=== PATIENT | female | born 1990 ===

== ENCOUNTER 2020-11-25 22:07 | Emergency (ER) | payer MEDICAID, SELFPAY ==
--- NOTE | ~2020-11-25 | XR_ITS ---
EXAMINATION: XR CHEST CLINICAL INFORMATION: Chest wall pain COMPARISON: 12/22/2018 TECHNIQUE: Frontal view of the chest was obtained. FINDINGS: No significant abnormality is noted involving the heart, lungs, mediastinum, bony thorax or soft tissues. XR/XR chest 1V IMPRESSION: Unremarkable examination.
--- NOTE | 2020-11-25 22:13 | ECG_ITS ---
Test Reason : CHEST WALL PAIN Blood Pressure : / mmHG Vent. Rate : 082 BPM Atrial Rate : 082 BPM P-R Int : 170 ms QRS Dur : 078 ms QT Int : 378 ms P-R-T Axes : 046 069 047 degrees QTc Int : 441 ms Normal sinus rhythm Normal ECG When compared with ECG of 22-DEC-2018 21:34, No significant change was found Referred By: Generic ED Physician Electronically Signed By:QUENTIN MONTEIRO
[2020-11-25 22:14] VITALS: BP 112/55; PULSE 82; RESP 17; TEMP 37.1; O2SAT 98; BMI 45.3
[2020-11-25 22:20] VITALS: BP 124/65; PULSE 82; O2SAT 100
--- NOTE | 2020-11-25 22:36 | ED.CHESTPAIN ---
HPI - Chest Pain General Chief Complaint: Chest Pain Stated Complaint: Chest wall pain Time Seen by Provider: 11/25/20 22:29 Related Data Previous Rx's Medication Instructions Recorded ibuprofen 600 mg tablet 600 mg PO Q8H PRN #10 tab 11/25/20 Allergies Allergy/AdvReac Type Severity Reaction Status Date / Time penicillin V Allergy Unknown Unknown Verified 11/25/20 22:14 Penicillins [PENICILLINS] Allergy Unknown UNKNOWN Verified 11/25/20 22:14 [facility] Past Medical History Medical History (Updated 11/25/20 @ 23:57 by Bella Mehta MD) No known health problems Social History Social History Advance Directives: No Advance Directives Information Provided: Yes Physical Exam Vital Signs: Vital Signs: Last Vital Signs Temp 98.8 F 11/25/20 22:14 Pulse 82 11/25/20 22:14 Resp 17 11/25/20 22:14 BP 112/55 L 11/25/20 22:14 Pulse Ox 98 11/25/20 22:14 Body Mass Index 45.3 Course Course Course Narrative: I discussed the labs and imaging with the patient, EKG, troponin and D-dimer were within normal limits. Patient likely having pleurisy. MDM - Chest Pain Lab Data Result diagrams: 11/25/20 23:06 11/25/20 23:06 Labs: Lab Results 11/25/20 11/25/20 11/25/20 Range/Units 23:05 23:05 23:06 WBC 13.7 H (4.8-10.8) X10*3/uL RBC 4.34 (4.20-5.50) X10*6/uL Hgb 12.5 (12.0-16.0) g/dl Hct 37.4 (37-47) % MCV 86.2 (80-98) fL MCH 28.8 (27.0-33.0) pg MCHC 33.4 (31.0-35.0) g/dl RDW 13.0 (11.0-16.0) % Plt Count 407 H (160-400) X10*3/uL MPV 9.2 L (9.4-12.3) fL Immature Gran % (Auto) 0.4 (0.0-0.4) % Neut % (Auto) 59.9 (45-73) % Lymph % (Auto) 31.1 (20-40) % [place] % (Auto) 7.4 (2-11) % Eos % (Auto) 0.8 (0-4) % Baso % (Auto) 0.4 (0-2) % Lymph # (Auto) 4.3 (1.2-4.9) X10*3/uL [place] # (Auto) 1.0 (0.1-1.2) X10*3/uL Eos # (Auto) 0.1 (0.0-0.4) X10*3/uL Baso # (Auto) 0.1 (0.0-0.2) X10*3/uL Abs Immat Gran (auto) 0.05 H (0.00-0.03) X10*3/uL Absolute Neuts (auto) 8.2 (2.0-8.3) X10*3/uL Absolute Nucleated RBC 0.000 (0.0-0.012) X10*3/uL Nucleated RBC % (auto) 0.0 (0.0-0.2) /100WBC D-Dimer < 200 NG/ML Sodium (135-145) mmol/L Potassium (3.3-5.1) mmol/L Chloride (96-108) mmol/L Carbon Dioxide (22-29) mmol/L Anion Gap (12-20) BUN (9-16) mg/dL Creatinine (0.5-1.4) mg/dL Estim Creat Clear Calc Estimated GFR Random Glucose (60-115) mg/dL Calcium (8.4-10.2) mg/dL Total Bilirubin (0.0-1.0) mg/dL Direct Bilirubin (0.0-0.5) mg/dL AST (5-31) U/L ALT (0-31) U/L Alkaline Phosphatase (39-117) U/L Troponin I High Sens < 3.5 (<3.5-17.0) ng/L Total Protein (6.5-8.0) g/dL Albumin (3.5-5.0) g/dL Beta HCG, Quant mIU/mL 11/25/20 Range/Units 23:06 WBC (4.8-10.8) X10*3/uL RBC (4.20-5.50) X10*6/uL Hgb (12.0-16.0) g/dl Hct (37-47) % MCV (80-98) fL MCH (27.0-33.0) pg MCHC (31.0-35.0) g/dl RDW (11.0-16.0) % Plt Count (160-400) X10*3/uL MPV (9.4-12.3) fL Immature Gran % (Auto) (0.0-0.4) % Neut % (Auto) (45-73) % Lymph % (Auto) (20-40) % [place] % (Auto) (2-11) % Eos % (Auto) (0-4) % Baso % (Auto) (0-2) % Lymph # (Auto) (1.2-4.9) X10*3/uL [place] # (Auto) (0.1-1.2) X10*3/uL Eos # (Auto) (0.0-0.4) X10*3/uL Baso # (Auto) (0.0-0.2) X10*3/uL Abs Immat Gran (auto) (0.00-0.03) X10*3/uL Absolute Neuts (auto) (2.0-8.3) X10*3/uL Absolute Nucleated RBC (0.0-0.012) X10*3/uL Nucleated RBC % (auto) (0.0-0.2) /100WBC D-Dimer NG/ML Sodium 138 (135-145) mmol/L Potassium 4.2 (3.3-5.1) mmol/L Chloride 106 (96-108) mmol/L Carbon Dioxide 23 (22-29) mmol/L Anion Gap 13 (12-20) BUN 17 H (9-16) mg/dL Creatinine 0.79 (0.5-1.4) mg/dL Estim Creat Clear Calc 119.8 Estimated GFR > 60 Random Glucose 91 (60-115) mg/dL Calcium 9.3 (8.4-10.2) mg/dL Total Bilirubin 0.2 (0.0-1.0) mg/dL Direct Bilirubin < 0.2 (0.0-0.5) mg/dL AST 14 (5-31) U/L ALT 20 (0-31) U/L Alkaline Phosphatase 102 (39-117) U/L Troponin I High Sens (<3.5-17.0) ng/L Total Protein 7.4 (6.5-8.0) g/dL Albumin 3.9 (3.5-5.0) g/dL Beta HCG, Quant < 2 mIU/mL Imaging Data Chest x-ray: Radiologist's impression: FINDINGS: No significant abnormality is noted involving the heart, lungs, mediastinum, bony thorax or soft tissues. XR/XR chest 1V IMPRESSION: Unremarkable examination. ? ECG Data ECG #1: Attestation: I personally reviewed and interpreted this ECG as follows: (Sinus rhythm, heart rate 82, no ST segment depression or elevation, finger jacinto, QTC 441) Discharge Plan Discharge Clinical Impression: Pleurisy Patient Disposition: Home, Self-Care Instructions: Pleurisy (ED) Additional Instructions: Please follow-up with your primary care physician tomorrow. If you have any worsening or new symptoms, please return to the emergency room or call 911 Prescriptions: New ibuprofen 600 mg tablet 600 mg PO Q8H PRN (Reason: pain) Qty: 10 RF: 0
--- NOTE | 2020-11-25 23:03 | PC.NURSE ---
IN ROOM FOR EVAL. PT C/O LEFT SIDED CP, WHICH IS WORSE WHEN SHE BREATHS IN. PT ALERT, RESPIRATIONS EASY, N/L. SKIN W/D. WILL CONTINUE TO MONITOR PT.
[2020-11-25 23:14] LABS: Basophils Absolute Auto 0.1 X10*3/uL (0.0-0.2); Basophils Percent Auto 0.4 % (0-2); Eosinophils Absolute Auto 0.1 X10*3/uL (0.0-0.4); Eosinophils Percent Auto 0.8 % (0-4); Hematocrit 37.4 % (37-47); Hemoglobin 12.5 g/dl (12.0-16.0); Imm Gran Abs Auto 0.05 X10*3/uL (0.00-0.03); Imm Gran Pct Auto 0.4 % (0.0-0.4); Lymphocytes Absolute Auto 4.3 X10*3/uL (1.2-4.9); Lymphocytes Percent Auto 31.1 % (20-40); MANUAL DIFF FLAG NO; Mean Corpuscular HGB Conc 33.4 g/dl (31.0-35.0); Mean Corpuscular Hemoglobin 28.8 pg (27.0-33.0); Mean Corpuscular Volume 86.2 fL (80-98); Mean Platelet Volume 9.2 fL (9.4-12.3); Monocytes Percent Auto 7.4 % (2-11); Neutrophils Absolute Auto 8.2 X10*3/uL (2.0-8.3); Neutrophils Percent Auto 59.9 % (45-73); Platelet Count 407 X10*3/uL (160-400); Red Blood Count 4.34 X10*6/uL (4.20-5.50); White Blood Count 13.7 X10*3/uL (4.8-10.8)
[2020-11-25 23:39] LABS: D Dimer < 200 NG/ML
[2020-11-25 23:39] LABS: Alanine Aminotransferase 20 U/L (0-31); Albumin Level 3.9 g/dL (3.5-5.0); Alkaline Phosphatase 102 U/L (39-117); Anion Gap 13 (12-20); Aspartate Amino Transferase 14 U/L (5-31); Bilirubin Direct < 0.2 mg/dL (0.0-0.5); Bilirubin Total 0.2 mg/dL (0.0-1.0); Blood Urea Nitrogen 17 mg/dL (9-16); Calcium 9.3 mg/dL (8.4-10.2); Carbon Dioxide 23 mmol/L (22-29); Chloride 106 mmol/L (96-108); Creatinine Clr Calc Pharmacy 119.8; Estimated Glomerular Filt Rate > 60; Glucose Random 91 mg/dL (60-115); Potassium 4.2 mmol/L (3.3-5.1); Sodium 138 mmol/L (135-145); Total Protein 7.4 g/dL (6.5-8.0)
[2020-11-25 23:42] LABS: Troponin-I High Sensitivity < 3.5 ng/L (<3.5-17.0)
[2020-11-25 23:45] LABS: HCG Quantitative < 2 mIU/mL
[2020-11-26] VITALS: BP 100/36; PULSE 89; RESP 16; TEMP 37.2; O2SAT 100
== END 2020-11-26 00:13 | disposition home or self-care (01) ==
PROVIDERS: Emergency Provider Emergency Medicine
DX: R09.1 Pleurisy (principal); R07.89 Other chest pain
CPT/HCPCS: 36415; 71045; 80048; 80076; 84484; 84702; 85025; 85379; 93005; 99284

== ENCOUNTER 2020-12-28 13:45 | Emergency (ER) | payer MEDICAID, SELFPAY ==
[2020-12-28 14:04] VITALS: BP 115/78; PULSE 99; RESP 19; TEMP 36.8; O2SAT 100; BMI 45.3
[2020-12-28 14:30] LABS: Glucose Urine UA NEG (NEG); Leukocyte Esterase Urine NEG (NEG); Nitrite Urine NEG (NEG); Specific Gravity - Urine >= 1.030 (1.005-1.025); UACC Culture Trigger NO; Urine Blood 1+ (NEG); Urine Ketones 15 MG/DL (NEG); Urine Protein TRACE MG/DL (NEG-TRACE)
[2020-12-28 14:33] LABS: Appearance Urine CLEAR; Color Urine YELLOW
[2020-12-28 14:45] LABS: Bacteria Urine TRACE /LPF; Mucus Urine 2+ /LPF; Squamous Epithelial Cell Urine 1+ /LPF
--- NOTE | 2020-12-28 15:35 | ED.ABDPAIN ---
HPI - Abdominal Pain General Chief Complaint: Abdominal Pain Stated Complaint: abd pain Time Seen by Provider: 12/28/20 15:35 Source: patient Mode of arrival: ambulatory Limitations: no limitations History of Present Illness HPI narrative: 30 years old female is here today for complaining of epigastric burning and discomfort for the last few days. Patient denies this being associated to any food or drink. Patient denies any nausea or vomiting. Patient reports having history of gallstones in the past. Since she learned that she states that she has been eating low-fat diet. Patient reports that she had a last bowel movement this morning and was normal. Patient reports that she feels like she empty her bowels completely. Denies any diarrhea or any additional GI symptoms. Patient denies SOB, CP, [employer], presyncope or syncope. Patient reports that she took Tums at home without any results. Patient reports that she also took Aleve p.m. at night so she can rest better however she reports that the and was more intense at night. Patient denies late night snacking. MD elicited complaint: other (Epigastric) Pertinent past history: none Pain Consistency: constant Location: epigastric Severity: mild Quality: burning Radiation: epigastric Migration to: no migration Related Data Previous Rx's Medication Instructions Recorded ibuprofen 600 mg tablet 600 mg PO Q8H PRN #10 tab 11/25/20 famotidine 20 mg tablet 20 mg PO BEDTIME #20 tab 12/28/20 pantoprazole 40 mg tablet,delayed 40 mg PO DAILY #20 tab 12/28/20 release Allergies Allergy/AdvReac Type Severity Reaction Status Date / Time penicillin V Allergy Unknown Unknown Verified 12/28/20 14:04 Penicillins [PENICILLINS] Allergy Unknown UNKNOWN Verified 12/28/20 14:04 Review of Systems Review of Systems Constitutional : No Weight loss, No Fever, No Chills, No Night Sweats, No Fatigue, No Malaise ENT/Mouth : No Hearing loss, No Ear Pain, No Nasal Congestion, No Sinus Pain, No Hoarseness, No sore throat, No Rhinorrhea, No Swallowing Difficulty Eyes: No Eye Pain, No Swelling, No Redness, No Foreign Body, No Discharge, No Vision Changes Cardiovascular : No Chest Pain, No SOB, No Dyspnea on Exertion, No Orthopnea, No Edema, No Palpitations Respiratory : No Cough, No Sputum, No Wheezing, No Smoke Exposure, No Dyspnea Gastrointestinal : No Nausea, No Vomiting, No Diarrhea, No Constipation, abdominal Pain, epigastric pain No Hematochezia, No Melena Genitourinary : no irregular bleeding, No Dysuria, No Urinary Frequency, No Hematuria, No Urinary Incontinence, No Urgency, No Flank Pain, No Urinary Flow Changes, No Hesitancy Musculoskeletal : No joint pain, No Myalgias, No Joint Swelling Skin : No Skin Lesions, No rash Neuro : No Weakness, No Numbness, No Paresthesias, No Loss of Consciousness, No Dizziness, No Headache Psych : No Anxiety/Panic, No Depression, No SI/HI/AH/VH, No Social Issues, Heme/Lymph: No Bruising, No Bleeding,No Lymphadenopathy Endocrine : No Polyuria, No Polydipsia, No Temperature Intolerance Yes all other systems are reviewed and are negative Physical Exam Vital Signs: Vital Signs: Last Vital Signs Temp 98.2 F 12/28/20 14:04 Pulse 92 12/28/20 18:09 Resp 16 12/28/20 18:09 BP 124/69 12/28/20 18:09 Pulse Ox 100 12/28/20 18:09 Body Mass Index 45.3 Const: General: healthy appearing, no acute distress and well developed Nutritional Appearance: well nourished Orientation/consciousness: patient oriented x3 HENMT: Head: Yes normal to inspection Ears: hearing grossly normal bilaterally General nose exam: Normal external nose present Face and sinus: Yes normal facial exam Mouth: Normal oral and palatal mucosa present Eyes: General: appearance normal, both eyes and all related structures Pupils: Equal, round and reactive pupils present Neck: Neck: Yes normal visual inspection, Yes full ROM and Yes trachea midline Thyroid: Thyroid normal Resp: Auscultation: clear to auscultation bilaterally Cardio: Rate: regular rate Rhythm: regular rhythm GI: Inspection: Yes normal to inspection, No distended and Yes obesity Palpation (GI): Soft to palpation, Firmness to palpation present (GI), Tenderness to palpation present (GI) (Mid upper abdomen) and No hepatosplenomegaly present Auscultation: normal bowel sounds Skin: General skin exam: elasticity normal, turgor normal and dry skin Neuro: General: patient oriented x3 Cranial nerves: Yes Equal, round and reactive pupils present Course Course Course Narrative: 30-year-old female is here today for complaining of epigastric burning, pain. Patient reports that she had this pain for the last few days. Patient states that does not matter of what kind of food she eats. Patient reports that her pain was worse during the night when she was laying down. Patient reports that she Aleve p.m. without any effect. Discussed with her that this is nonsteroidal anti-inflammatory and might not been a good choice as this can aggravate her stomach. Patient reports that she has no nausea, vomiting, diarrhea or constipation. Patient denies any other GI discomfort no right upper quadrant tenderness mild mid upper abdominal area tenderness. I will give her Protonix. Most likely acid reflux. Patient denies any chest pain no radiation of the pain. Will rule out pancreatitis, cholecystitis. Patient does have a history of gallstones. Negative Meyer's sign. Labs: CBC, CMP, lipase Reevaluation(s) Reevaluation #1: Labs reviewed, normal liver and kidney functions. Most likely viral symptoms. Will send patient home on pantoprazole and famotidine. Patient can follow-up with her primary care provider. Patient is agreeable to this plan and verbalizes understanding of instructions she was given the opportunity to ask questions and all questions answered MDM - Abdominal Pain Lab Data Result diagrams: 12/28/20 16:15 12/28/20 16:15 Labs: Lab Results 12/28/20 12/28/20 12/28/20 Range/Units 14:23 16:15 16:15 WBC 11.7 H (4.8-10.8) X10*3/uL RBC 5.07 (4.20-5.50) X10*6/uL Hgb 14.5 (12.0-16.0) g/dl Hct 43.8 (37-47) % MCV 86.4 (80-98) fL MCH 28.6 (27.0-33.0) pg MCHC 33.1 (31.0-35.0) g/dl RDW 13.1 (11.0-16.0) % Plt Count 393 (160-400) X10*3/uL MPV 9.2 L (9.4-12.3) fL Immature Gran % (Auto) 0.3 (0.0-0.4) % Neut % (Auto) 64.1 (45-73) % Lymph % (Auto) 25.9 (20-40) % [place] % (Auto) 7.9 (2-11) % Eos % (Auto) 1.5 (0-4) % Baso % (Auto) 0.3 (0-2) % Lymph # (Auto) 3.0 (1.2-4.9) X10*3/uL [place] # (Auto) 0.9 (0.1-1.2) X10*3/uL Eos # (Auto) 0.2 (0.0-0.4) X10*3/uL Baso # (Auto) 0.0 (0.0-0.2) X10*3/uL Abs Immat Gran (auto) 0.04 H (0.00-0.03) X10*3/uL Absolute Neuts (auto) 7.5 (2.0-8.3) X10*3/uL Absolute Nucleated RBC 0.000 (0.0-0.012) X10*3/uL Nucleated RBC % (auto) 0.0 (0.0-0.2) /100WBC Sodium 138 (135-145) mmol/L Potassium 4.0 (3.3-5.1) mmol/L Chloride 104 (96-108) mmol/L Carbon Dioxide 26 (22-29) mmol/L Anion Gap 12 (12-20) BUN 13 (9-16) mg/dL Creatinine 0.61 (0.5-1.4) mg/dL Estim Creat Clear Calc 153.7 Estimated GFR > 60 Random Glucose 76 (60-115) mg/dL Calcium 10.0 D (8.4-10.2) mg/dL Total Bilirubin 0.4 (0.0-1.0) mg/dL AST 17 (5-31) U/L ALT 29 (0-31) U/L Alkaline Phosphatase 93 (39-117) U/L Total Protein 8.4 H (6.5-8.0) g/dL Albumin 4.4 (3.5-5.0) g/dL Lipase 29 (8-78) U/L Urine Color YELLOW Urine Appearance CLEAR Urine pH 6.0 (5.0-8.0) Ur Specific [place] >= 1.030 H (1.005-1.025) Urine Protein TRACE (NEG-TRACE) MG/DL Urine Glucose (UA) NEG (NEG) MG/DL Urine Ketones 15 (NEG) MG/DL Urine Blood 1+ H (NEG) Urine Nitrite NEG (NEG) Ur Leukocyte Esterase NEG (NEG) Urine RBC 15-29 H (0) /HPF Urine WBC 1-4 (0-4) /HPF Ur Squamous Epith Cells 1+ /LPF Urine Bacteria TRACE /LPF Urine Mucus 2+ /LPF Discharge Plan Discharge Clinical Impression: Epigastric abdominal pain Patient Disposition: Home, Self-Care Instructions: Epigastric Pain (ED) Additional Instructions: You were seen here today for mid upper abdominal discomfort and burning. You were giving fluids and medication that relieved these symptoms. Your labs shows no anemia, your liver and kidney functions were normal. Please follow-up with your primary care provider and GI specialist for further evaluation. I will be sending you home with medications to help you with the symptoms. You may return to emergency department if you will have worsening symptoms or experience additional coarsening symptoms. Prescriptions: New pantoprazole 40 mg tablet,delayed release (DR/EC) 40 mg PO DAILY Qty: 20 RF: 0 famotidine 20 mg tablet 20 mg PO BEDTIME Qty: 20 RF: 0 No Action ibuprofen 600 mg tablet 600 mg PO Q8H PRN (Reason: pain) Qty: 10 RF: 0 Referrals: Annabel Davis MD [Physician] - 2 days Interventions: ED Discharge Assessment Last Done: 12/28/20 18:43 Discharge Date/Time: 12/28/20 18:43 [facility] Past Medical History Medical History (Updated 12/29/20 @ 00:02 by Background Daandre) No known health problems Social History Social History Patient Tobacco Use Status: Never used Tobacco Use of substances other than those prescribed or required for medical reasons: No Advance Directives: No Advance Directives Information Provided: Yes Patient : No
[2020-12-28 16:19] LABS: Basophils Percent Auto 0.3 % (0-2); Eosinophils Absolute Auto 0.2 X10*3/uL (0.0-0.4); Eosinophils Percent Auto 1.5 % (0-4); Hematocrit 43.8 % (37-47); Hemoglobin 14.5 g/dl (12.0-16.0); Imm Gran Abs Auto 0.04 X10*3/uL (0.00-0.03); Imm Gran Pct Auto 0.3 % (0.0-0.4); Lymphocytes Percent Auto 25.9 % (20-40); MANUAL DIFF FLAG NO; Mean Corpuscular HGB Conc 33.1 g/dl (31.0-35.0); Mean Corpuscular Hemoglobin 28.6 pg (27.0-33.0); Mean Corpuscular Volume 86.4 fL (80-98); Mean Platelet Volume 9.2 fL (9.4-12.3); Monocytes Absolute Auto 0.9 X10*3/uL (0.1-1.2); Monocytes Percent Auto 7.9 % (2-11); Neutrophils Absolute Auto 7.5 X10*3/uL (2.0-8.3); Neutrophils Percent Auto 64.1 % (45-73); Platelet Count 393 X10*3/uL (160-400); Red Blood Count 5.07 X10*6/uL (4.20-5.50); Red Cell Distribution Width 13.1 % (11.0-16.0); White Blood Count 11.7 X10*3/uL (4.8-10.8)
[2020-12-28] MEDS: 0.9 % Sodium Chloride 1,000 ML 999 ML IV (16:33)
[2020-12-28] MEDS: Pantoprazole Sodium 40 MG/10 ML VIAL IVPUSH (16:33)
[2020-12-28 16:47] LABS: Alanine Aminotransferase 29 U/L (0-31); Albumin Level 4.4 g/dL (3.5-5.0); Alkaline Phosphatase 93 U/L (39-117); Anion Gap 12 (12-20); Aspartate Amino Transferase 17 U/L (5-31); Bilirubin Total 0.4 mg/dL (0.0-1.0); Blood Urea Nitrogen 13 mg/dL (9-16); Carbon Dioxide 26 mmol/L (22-29); Chloride 104 mmol/L (96-108); Creatinine Clr Calc Pharmacy 153.7; Estimated Glomerular Filt Rate > 60; Glucose Random 76 mg/dL (60-115); Lipase 29 U/L (8-78); Sodium 138 mmol/L (135-145); Total Protein 8.4 g/dL (6.5-8.0)
[2020-12-28 18:09] VITALS: BP 124/69; PULSE 92; RESP 16; O2SAT 100
== END 2020-12-28 18:43 | disposition home or self-care (01) ==
PROVIDERS: Nurse Practitioner Family; Emergency Provider Emergency Medicine
DX: R10.13 Epigastric pain (principal); Z79.899 Other long term (current) drug therapy
CPT/HCPCS: 36415; 80053; 81001; 83690; 85025; 96361; 96374; 99284

== ENCOUNTER 2021-09-19 09:03 | Emergency (ER) | payer MEDICAID, SELFPAY ==
--- NOTE | ~2021-09-19 | XR_ITS ---
EXAMINATION: XR CHEST CLINICAL INFORMATION: Shortness of breath COMPARISON: 11/25/2020 TECHNIQUE: Frontal view of the chest was obtained. FINDINGS: There is no acute finding. No failure or infiltrate. There is no effusion. The cardiac silhouette is within normal limits. The hilar regions are comparable. XR/XR chest 1V IMPRESSION: No acute finding
[2021-09-19 09:17] VITALS: BP 115/74; PULSE 86; RESP 18; TEMP 35.7; O2SAT 98; BMI 44.4
[2021-09-19 10:03] LABS: COVID-19 Test Negative (Negative)
[2021-09-19 10:22] LABS: IDNOW Serial# 08D9AD1C
[2021-09-19 10:23] LABS: Strep A Nucleic Acid Positive (Negative)
[2021-09-19 10:35] LABS: Influenza A Negative (Negative); Influenza B2 Negative (Negative)
--- NOTE | 2021-09-19 10:59 | ED_ITS ---
HPI - URI/Sore Throat General Chief Complaint: Upper Respiratory Symptoms Stated Complaint: diff breathing Time Seen by Provider: 09/19/21 10:59 Source: patient Mode of arrival: ambulatory Limitations: no limitations History of Present Illness MD elicited complaint: cough, sore throat, rhinorrhea and nasal congestion Onset (ago): day(s) (3) Consistency: constant Severity: mild Able to tolerate fluids by mouth: Yes Exacerbating factors: swallowing Relieving factors: nothing Context: sick contacts (ER daughter with similar symptoms) Associated symptoms: chills, myalgias, headache, rhinorrhea, nasal congestion, sore throat and cough Treatments prior to arrival: none Related Data Previous Rx's Medication Instructions Recorded ibuprofen 600 mg tablet 600 mg PO Q8H PRN #10 tab 11/25/20 famotidine 20 mg tablet 20 mg PO BEDTIME #20 tab 12/28/20 pantoprazole 40 mg tablet,delayed 40 mg PO DAILY #20 tab 12/28/20 release albuterol sulfate 90 mcg/actuation 1 inh INHALATION QID PRN #8.5 g 09/19/21 aerosol inhaler clindamycin HCl 300 mg capsule 300 mg PO TID 10 Days #30 cap 09/19/21 prednisone 20 mg tablet 40 mg PO DAILY 5 Days #10 tab 09/19/21 Allergies Allergy/AdvReac Type Severity Reaction Status Date / Time penicillin V Allergy Unknown Unknown Verified 12/28/20 14:04 Penicillins [PENICILLINS] Allergy Unknown UNKNOWN Verified 12/28/20 14:04 Review of Systems Review of Systems: Constitutional : + chills/fatigue/malaise, No Weight loss, No Fever, No Night Sweats ENT/Mouth : + sore throat/nasal congestion/rhinorrhea/right ear pain, No Hearing loss, No Sinus Pain, No Hoarseness, No Swallowing Difficulty Eyes: No Eye Pain, No Swelling, No Redness, No Foreign Body, No Discharge, No Vision Changes Cardiovascular : No Chest Pain, No SOB, No Dyspnea on Exertion, No Orthopnea, No Edema, No Palpitations Respiratory : + Cough, No Sputum, No Wheezing, No Smoke Exposure, No Dyspnea Gastrointestinal : No Nausea, No Vomiting, No Diarrhea, No Constipation, No abdominal Pain, No Hematochezia, No Melena Genitourinary : no irregular bleeding, No Dysuria, No Urinary Frequency, No Hematuria, No Urinary Incontinence, No Urgency, No Flank Pain, No Urinary Flow Changes, No Hesitancy Musculoskeletal : No joint pain, + Myalgias, No Joint Swelling Skin : No Skin Lesions, No rash Neuro : No Weakness, No Numbness, No Paresthesias, No Loss of Consciousness, No Dizziness, No Headache Psych : No Anxiety/Panic, No Depression, No SI/HI/AH/VH, No Social Issues, Heme/Lymph: No Bruising, No Bleeding,No Lymphadenopathy Endocrine : No Polyuria, No Polydipsia, No Temperature Intolerance Yes all other systems are reviewed and are negative [facility] Past Medical History Attestation statement: The following information was validated with the patient. Medical History No known health problems Social History Social History Patient Tobacco Use Status: Never used Tobacco Advance Directives: No Advance Directives Information Provided: No Physical Exam Vital Signs: Vital Signs: Last Vital Signs Temp 96.2 F L 09/19/21 09:17 Pulse 86 09/19/21 09:17 Resp 18 09/19/21 09:17 BP 115/74 09/19/21 09:17 Pulse Ox 98 09/19/21 09:17 BMI result Body Mass Index 44.4 vital signs have been reviewed as normal and appeared to be correct. Blood pressure normal. Heart rate normal. Respiration rate normal. Temperature normal. Oxygen saturation normal. Appearance: Alert. Oriented X3. No acute distress. Head: Normal external exam. Normocephalic. Atraumatic. No Epperson signs noted. No raccoon eyes noted Eyes: PERRLA. EOMI. Conjunctiva and sclera normal. Eyelids normal. ENT: EAC normal. TM's Normal. Posterior pharynx mildly erythematous with exudate noted. Uvula midline. Moist mucous membranes. No lesions/ulcerations or masses noted on the tongue. Normal voice. No trismus noted. No drooling noted. No muffled voice noted. Neck: Normal inspection. Neck supple. FROM. No adenopathy. Thyroid Normal. No tracheal deviation noted. No crepitus is noted. No meningeal signs. No neck mass noted. No signs of trauma noted. CVS: Normal heart rate and rhythm. Heart sound normal. Pulses normal throughout. No murmurs/rales/gallops. Respiratory: No respiratory distress. Painless inspiration. Breath sounds normal. No wheezes/rales/rhonchi noted. Chest nontender. No crepitus is noted. No signs of trauma noted. No accessory muscle usage noted or decreased air movement noted. No signs of trauma. Abdomen: Soft and nontender. Bowel sounds normal in all 4 quadrants. No distention noted. No organomegaly noted. No visible injury noted. Back: No CVA tenderness. Full range of motion noted. Nontender. No signs of trauma. Patient neuro intact bilaterally and distally on all 4 extremities. Patient's reflexes intact bilaterally and distally on all 4 extremities. No ra shes/lesion/induration/fluctuance or signs of infection noted. Skin: Skin warm and dry. Normal skin color. Normal skin turgor. No rashes/lesions/lacerations noted. Extremities: No lower extremity edema. No calf tenderness is noted. Extremities exhibit normal range of motion and nontender. Neuro: Oriented X 3. No motor deficit. No sensory deficit. Reflexes normal. Normal steady gait. No focal neuro deficits noted. CN's II-XII intact bilaterally? Vascular: + radial pulses/+ 2 distal pedal pulses/+2 dorsalis pedis b/l. Normal cap refill. No cyanosis noted to upper extremity nails and lower extremity toes nails. Course Course Course Narrative: Patient negative for COVID/flu patient positive for influenza. Chest x-ray within normal limits. Will DC home with antibiotics and symptomatic treatment instructions return if any new or worsening symptoms. Patient understands agrees with this plan. MDM - URI/Sore Throat Medical Records Attestation: I reviewed the patient's medical records. Lab Data Attestation: I reviewed the patient's lab results. Labs: Lab Results 09/19/21 09/19/21 09/19/21 Range/Units 09:25 09:25 09:25 COVID-19 (EPIFANIO) Negative (Negative) COVID-19 Clin Com See Note Influenza Type A (BARRIE) Negative (Negative) Influenza Type B (BARRIE) Negative (Negative) Influenza A & B Note See Note S. pyogenes GrpA [facility] Positive A (Negative) Imaging Data Chest x-ray: Attestation: I personally reviewed and interpreted this imaging study as follows: Radiologist's impression: FINDINGS: There is no acute finding. No failure or infiltrate. There is no effusion. The cardiac silhouette is within normal limits. The hilar regions are comparable. XR/XR chest 1V IMPRESSION: No acute finding Discharge Plan Discharge Clinical Impression: Acute bacterial pharyngitis, Upper respiratory infection Patient Disposition: Home, Self-Care Instructions: Pharyngitis (ED), Upper Respiratory Infection (ED) Prescriptions: New clindamycin HCl 300 mg capsule 300 mg PO TID 10 Days Qty: 30 0RF prednisone 20 mg tablet 40 mg PO DAILY 5 Days Qty: 10 0RF albuterol sulfate 90 mcg/actuation HFA aerosol inhaler 1 inh inhalation QID PRN (Reason: shortness of breath or wheezing) Qty: 8.5 0RF No Action ibuprofen 600 mg tablet 600 mg PO Q8H PRN (Reason: pain) Qty: 10 0RF pantoprazole 40 mg tablet,delayed release (DR/EC) 40 mg PO DAILY Qty: 20 0RF Rx Instructions: Please take 1 tablet half an hour before breakfast. famotidine 20 mg tablet 20 mg PO BEDTIME Qty: 20 0RF Rx Instructions: Please take 1 tablet at bedtime Referrals: [facility] [Primary Care Provider] - 2 days Stand Alone Forms: Work/School Release
== END 2021-09-19 11:19 | disposition home or self-care (01) ==
PROVIDERS: Emergency Provider Emergency Medicine Emergency Medical Services
DX: J02.9 Acute pharyngitis, unspecified (principal); J06.9 Acute upper respiratory infection, unspecified; R06.02 Shortness of breath; R05.9 Cough, unspecified; M79.10 Myalgia, unspecified site; Z20.822 Contact with and (suspected) exposure to COVID-19; Z79.899 Other long term (current) drug therapy
CPT/HCPCS: 36415; 71045; 87502; 87635; 87651; 99283

== ENCOUNTER 2022-01-04 12:43 | Emergency (ER) | payer MEDICAID, SELFPAY ==
--- NOTE | ~2022-01-04 | XR_ITS ---
EXAMINATION: XR CHEST CLINICAL INFORMATION: Left rib pain with breathing COMPARISON: Previous chest x-ray most recent August 2021 TECHNIQUE: Frontal view of the chest was obtained. FINDINGS: No significant abnormality is noted involving the heart, lungs, mediastinum, bony thorax or soft tissues. XR/XR chest 1V IMPRESSION: Unremarkable examination.
[2022-01-04 12:48] VITALS: BP 117/75; PULSE 90; RESP 17; TEMP 35.9; O2SAT 99; BMI 45.3
--- NOTE | 2022-01-04 14:49 | ED_ITS ---
HPI - General Adult General Chief complaint: General Medical Stated complaint: pain under R breast/pain while brathing Time Seen by Provider: 01/04/22 14:48 Source: patient Mode of arrival: ambulatory Limitations: no limitations History of Present Illness HPI narrative: Patient is a 31 year old female presenting to the emergency department today with left sided rib pain. Patient states that it started this morning and when she takes a deep breath, her left rib cage right under her breast hurts. Patient denies any dizziness, lightheadedness, abdominal pain, nausea, vomiting, fever, chills, blurry vision, double vision, loss of vision, chest pain, difficulty breathing, shortness of breath, back pain, night sweats, pain with urination, increased urinary frequency, increased urinary urgency, blood in her urine or stool, syncope or a near syncopal episode, recent trauma or falls, bowel incontinence, bladder incontinence, bowel retention, bladder retention, or any other complaints at this time. Onset (ago): hour(s) Radiation: non-radiation Severity: mild Severity scale (1-10): 1 Quality: stabbing Pain Consistency: intermittent Relieving factors: none Exacerbating factors: other (deep breath) Associated symptoms: denies other symptoms Treatments prior to arrival: none Related Data Previous Rx's Medication Instructions Recorded famotidine 20 mg tablet 20 mg PO BEDTIME #20 tabs 12/28/20 pantoprazole 40 mg tablet,delayed 40 mg PO DAILY #20 tabs 12/28/20 release albuterol sulfate 90 mcg/actuation 1 inh inhalation QID PRN shortness 09/19/21 aerosol inhaler of breath or wheezing #8.5 grams clindamycin HCl 300 mg capsule 300 mg PO TID pharyngitis 10 days 09/19/21 #30 caps prednisone 20 mg tablet 40 mg PO DAILY bronchospasm 5 days 09/19/21 #10 tabs naproxen 500 mg tablet 500 mg PO BID 7 days #14 tabs 01/04/22 Allergies Allergy/AdvReac Type Severity Reaction Status Date / Time penicillin V Allergy Unknown Unknown Verified 12/28/20 14:04 Penicillins [PENICILLINS] Allergy Unknown UNKNOWN Verified 12/28/20 14:04 Review of Systems Constitutional: Constitutional: Reports no additional constitutional complaints, Denies chills, Denies fever(s) and Denies night sweats Eyes: Eyes: Reports no additional eye complaints, Denies blurry vision, Denies change in vision, Denies diplopia, Denies eye discharge, Denies loss of vision and Denies eye pain ENT: Denies dizziness Cardiovascular: Cardiovascular: Reports no additional cardiovascular complaints, Denies chest pain, Denies lightheadedness, Denies Loss of Consciousness and Denies dyspnea Respiratory: Respiratory: Reports no additional respiratory complaints and Denies dyspnea Gastrointestinal: Gastrointestinal: Reports no additional gastrointestinal complaints, Denies abdominal pain, Denies melena, Denies hematochezia, Denies change in bowel habits and Denies change in stool character Genitourinary: Genitourinary: Denies hematuria, Denies urinary frequency, Denies dysuria, Denies urinary incontinence, Denies urinary hesitancy and Denies urinary urgency Musculoskeletal: Musculoskeletal: Reports no additional musculoskeletal complaints, Denies numbness and Denies tingling Comments: left sided rib pain when deep breathing Neurologic: Denies dizziness, Denies loss of vision, Denies numbness and Denies tingling Psychiatric: Psychiatric: Reports no additional psychiatric complaints Endocrine: Endocrine: Reports no additional endocrine complaints Hematologic/Lymphatic: Hematologic/Lymphatic: Reports no additional hematologic/lymphatic complaints Allergic/Immunologic: Allergic/Immunologic: Reports no additional allergic/immunologic complaints PMFSH Past Medical History Attestation statement: The following information was validated with the patient. Source: old records reviewed Medical History No known health problems Social History Social History Patient Tobacco Use Status: Never used Tobacco Advance Directives: No Advance Directives Information Provided: No Physical Exam ED Vital Signs: Vital Signs - 24 hr 01/04/22 12:48 Temperature 96.7 F L Pulse Rate 90 Respiratory Rate 17 Blood Pressure 117/75 Pulse Oximetry 99 Oxygen Delivery Method Room Air BMI result Body Mass Index 45.3 Const General: cooperative, no acute distress, alert and awake Nutritional Appearance: well nourished Orientation/consciousness: patient oriented x3 Limitations: no limitations HENMT Head: Yes normal to inspection and Yes atraumatic Ears: hearing grossly normal bilaterally and external ears normal General nose exam: Normal external nose present, no nasal discharge noted and no epistaxis Face and sinus: Yes normal facial exam, No abrasion and No laceration Mouth: Normal oral and palatal mucosa present, no drooling and no muffled voice Eyes General: appearance normal, both eyes and all related structures Periorbital: periorbital findings normal Eyelids: Yes eyelids normal Conjunctivae: conjunctivae normal Pupils: Equal, round and reactive pupils present EOM: EOMs intact bilaterally Neck Neck: Yes normal visual inspection, Yes full ROM and Yes no lymphadenopathy Chest Chest palpation & inspection: normal inspection of the chest Resp Effort & Inspection: normal respiratory effort and able to speak in complete sentences Auscultation: clear to auscultation bilaterally Cardio Rate: regular rate Rhythm: regular rhythm GI Inspection: Yes normal to inspection Neuro General: patient oriented x3 and moves all extremities Cranial nerves: Yes Equal, round and reactive pupils present Cognition (Neuro): normal cognition Motor exam (neuro): 5/5 motor strength present throughout Sensory Exam: Normal double simultaneous stimulation for sensation Coordination: [id number] test normal Extrem General: Yes normal to inspection, Yes full ROM and Yes capillary refill normal Psych Appearance: grossly normal Mental Status: mental status grossly normal Affect: normal affect Attitude: cooperative Thought process: Normal thought process present Thought content: Normal thought content present Insight: Good insight present (Psych) Medical Decision Making MDM Narrative Medical decision making narrative: Patient is a 31 year old female presenting to the emergency department today with left sided rib pain with deep breathing. Patient's physical exam was unremarkable. Patient's chest x-ray showed no acute process. Patient's presentation and negative chest x-ray are consistent with acute costochondritis. I explained my physical exam findings as well as all test results to the patient. I answered all questions asked by the patient. Patient received IM Toradol which she stated helped her symptoms significantly. I stressed the importance of the patient taking her medication as prescribed. I stressed the importance of the patient following up with her primary care provider. I stres sed the importance of the patient returning to the emergency department immediately if her symptoms were to worsen or if she were to develop any dizziness, shortness of breath, difficulty breathing, chest pain, blurry vision, loss of vision, nausea, vomiting, abdominal pain, fever, chills, back pain, or any other complaints. Patient verbalized agreement and understanding with this treatment plan and discharge. Medical Records Medical records reviewed: Yes I reviewed the patient's medical records. Imaging Data Chest x-ray: Attestation: I personally reviewed and interpreted this imaging study as follows: My impression: No acute process. Radiologist's impression: EXAMINATION: XR CHEST CLINICAL INFORMATION: Left rib pain with breathing COMPARISON: Previous chest x-ray most recent August 2021 TECHNIQUE: Frontal view of the chest was obtained. FINDINGS: No significant abnormality is noted involving the heart, lungs, mediastinum, bony thorax or soft tissues. XR/XR chest 1V IMPRESSION: Unremarkable examination. Dictated By: Maegan Zarate MD Signed By: Electronically signed by Maegan Zarate MD 01/04/22 6301 Discharge Plan Discharge Clinical Impression: Acute costochondritis Patient Disposition: Home, Self-Care Instructions: Costochondritis (ED) Additional Instructions: Follow up with your primary care provider. Return to the emergency department immediately if your symptoms worsen or if you develop any dizziness, shortness of breath, difficulty breathing, chest pain, blurry vision, loss of vision, nausea, vomiting, abdominal pain, fever, chills, back pain, or any other complaints. Prescriptions: New naproxen 500 mg tablet 500 mg PO BID 7 Days Qty: 14 0RF Rx Instructions: Do NOT start until 01/05/2022 Discontinued ibuprofen 600 mg tablet 600 mg PO Q8H PRN (Reason: pain) Qty: 10 0RF No Action pantoprazole 40 mg tablet,delayed release (DR/EC) 40 mg PO DAILY Qty: 20 0RF Rx Instructions: Please take 1 tablet half an hour before breakfast. famotidine 20 mg tablet 20 mg PO BEDTIME Qty: 20 0RF Rx Instructions: Please take 1 tablet at bedtime clindamycin HCl 300 mg capsule 300 mg PO TID 10 Days Qty: 30 0RF prednisone 20 mg tablet 40 mg PO DAILY 5 Days Qty: 10 0RF albuterol sulfate 90 mcg/actuation HFA aerosol inhaler 1 inh inhalation QID PRN (Reason: shortness of breath or wheezing) Qty: 8.5 0RF Referrals: Izabella Milton MD [Primary Care Provider] - Interventions: ED Discharge Assessment Last Done: 01/04/22 15:08 Discharge Date/Time: 01/04/22 15:09 Print Language: Greenlandic
[2022-01-04] MEDS: Ketorolac Tromethamine 15 MG/ML VIAL IM (15:03)
== END 2022-01-04 15:09 | disposition home or self-care (01) ==
PROVIDERS: Emergency Provider Internal Medicine; PCP Internal Medicine
DX: M94.0 Chondrocostal junction syndrome [Tietze] (principal); N64.4 Mastodynia; Z79.899 Other long term (current) drug therapy
CPT/HCPCS: 71045; 96372; 99283; 99284; J1885

== ENCOUNTER 2022-05-24 12:03 | Emergency (ER) | payer MEDICAID, SELFPAY ==
--- NOTE | 2022-05-24 12:08 | ED_ITS ---
HPI - General Adult General Chief complaint: Vaginal Bleeding <ROYAL Mcintyre - Last Filed: 05/24/22 12:09> Stated complaint: Abd Pain, Vaginal bleed, Lump in Vaginal area <ROYAL Mcintyre - Last Filed: 05/24/22 12:09> Time Seen by Provider: 05/24/22 12:29 <ROYAL Mcintyre - Last Filed: 05/24/22 12:09> Source: patient <ROYAL Sauer - Last Filed: 05/24/22 14:56> Mode of arrival: ambulatory <ROYAL Sauer Last Filed: 05/24/22 14:56> Limitations: no limitations <ROYAL Sauer Last Filed: 05/24/22 14:56> History of Present Illness HPI narrative: 31-year-old female presenting to the ER with complaints of vaginal bleeding, vaginal itching and feeling a lump inside her vaginal canal since last night. She reports last night she was itching and she took some toilet tissue and started rubbing her vaginal area she noticed moderate amount of blood including clots and then when she felt her vaginal canal she felt a large lump in there that was squishy. She reports since then she has been having some abdominal cramping/discomfort. She reports she is unsure if this is her regular. As her periods have been irregular since February. She reports that she has a Nexplanon in place. She reports in February she bled for at least 20- 30 days and she has had irregular periods since then. She reports that she has been with her significant other for 2 years she does not believe she has an STD. Although she is agreeing to be tested for gonorrhea chlamydia. She denies any dizziness, change in vision, cough, chest pain or shortness of breath, abdominal pain, flank pain, dysuria, hematuria, abnormal vaginal discharge, black or bl oody stools, rashes, lesions to the vaginal area or sores, diarrhea constipation or any other symptoms complaints or concerns at this time. <ROYAL Sauer Last Filed: 05/24/22 14:56> MD complaint: Abnormal vaginal bleeding, vaginal itching and lump in vaginal area <ROYAL Sauer Last Filed: 05/24/22 14:56> Onset (ago): day(s) (Since last night) <ROYAL Sauer Last Filed: 05/24/22 14:56> Related Data Home medications: Previous Rx's Medication Instructions Recorded famotidine 20 mg tablet 20 mg PO BEDTIME #20 tabs 12/28/20 pantoprazole 40 mg tablet,delayed 40 mg PO DAILY #20 tabs 12/28/20 release albuterol sulfate 90 mcg/actuation 1 inh inhalation QID PRN shortness 09/19/21 aerosol inhaler of breath or wheezing #8.5 grams clindamycin HCl 300 mg capsule 300 mg PO TID pharyngitis 10 days 09/19/21 #30 caps prednisone 20 mg tablet 40 mg PO DAILY bronchospasm 5 days 09/19/21 #10 tabs naproxen 500 mg tablet 500 mg PO BID 7 days #14 tabs 01/04/22 fluconazole 150 mg tablet 150 mg PO Q3D 2 doses #2 tabs 05/24/22 (Diflucan) <ROYAL Mcintyre - Last Filed: 05/24/22 12:09> Allergies/adverse reactions: Allergies Allergy/AdvReac Type Severity Reaction Status Date / Time penicillin V Allergy Unknown Unknown Verified 05/24/22 12:12 Penicillins [PENICILLINS] Allergy Unknown UNKNOWN Verified 05/24/22 12:12 <ROYAL Mcintyre - Last Filed: 05/24/22 12:09> Review of Systems Review of Systems: Constitutional : No Fever, No Chills ENT/Mouth : No sore throat, No Rhinorrhea Eyes: No Eye Pain, No Redness Cardiovascular : No Chest Pain, No SOB Respiratory : No Cough, No Sputum, No Wheezing Gastrointestinal : No Nausea, No Vomiting, No Diarrhea, No abdominal pain, Genitourinary : + irregular bleeding, + vaginal pruritus, No Dysuria, No Urinary Frequency, No pelvic pain, No vaginal discharge, no hematuria Musculoskeletal : No Myalgias Skin : No rash Neuro : No Weakness, No Headache Psych : No Anxiety/Panic, No Depression Heme/Lymph: No bruising, No Lymphadenopathy Endocrine : No Polyuria, No Polydipsia <ROYAL Sauer Last Filed: 05/24/22 14:56> Yes all other systems are reviewed and are negative <ROYAL Sauer Last Filed: 05/24/22 14:56> [facility] Past Medical History Attestation statement: The following information was validated with the patient. <ROYAL Sauer - Last Filed: 05/24/22 14:56> Source: old records reviewed and nursing notes reviewed <ROYAL Sauer - Last Filed: 05/24/22 14:56> Medical History: Medical History No known health problems <ROYAL Mcintyre - Last Filed: 05/24/22 12:09> Social History Social History: Social History Patient Tobacco Use Status: Never used Tobacco Advance Directives: No Advance Directives Information Provided: No <ROYAL Mcintyre - Last Filed: 05/24/22 12:09> Physical Exam ED Vital Signs: Vital Signs - 24 hr 05/24/22 12:09 Temperature 96.5 F L Pulse Rate 96 Respiratory Rate 18 Blood Pressure 115/76 Pulse Oximetry 97 Oxygen Delivery Method Room Air BMI result Body Mass Index 44.4 <ROYAL Mcintyre - Last Filed: 05/24/22 12:09> Vital Signs - 24 hr 05/24/22 12:09 Temperature 96.5 F L Pulse Rate 96 Respiratory Rate 18 Blood Pressure 115/76 Pulse Oximetry 97 Oxygen Delivery Method Room Air BMI result Body Mass Index 44.4 All vital signs within normal limits <ROYAL Sauer - Last Filed: 05/24/22 14:56> Appearance: Alert. Oriented X3. No acute distress. Head: Normal external exam. Normocephalic. Atraumatic. Eyes: PERRLA. EOMI. Conjunctiva and sclera normal. Eyelids normal. ENT: EAC normal. TM's Normal. Pharynx normal. Uvula midline. Moist mucous membranes. No trismus noted. No drooling noted. No muffled voice noted. Neck: Normal inspection. Neck supple. FROM. No adenopathy. No meningeal signs. CVS: Normal heart rate and rhythm. Heart sound normal. No murmurs noted. Pulses normal throughout. Respiratory: No respiratory distress. Painless inspiration. Breath sounds normal. No wheezes/rales/rhonchi noted. Chest nontender. No accessory muscle usage noted or decreased air movement noted. Abdomen: Soft and nontender. Bowel sounds normal in all 4 quadrants. No distention noted. No organomegaly noted. No visible injury noted. : Supervised by LEA Mclean. Normal external appearance of urethra. Patient does have vaginal bleeding no clots are noted or hemorrhaging noted. No additional lesions/lacerations or discharge or tenderness noted. Speculum exam normal appearance/palpation of vagina normal. No abnormal vaginal discharge noted. Otherwise no vaginal erythema. No foreign bodies noted. No vaginal laceration/lesions or active bleeding noted. No tissue present in vagina. No vaginal mass noted. No vaginal swelling noted. No vaginal tenderness noted. Normal appearance of cervix. Normal palpation of cervix. Cervical os is closed. No abnormal cervical discharge noted. No cervical lesion/mass. No Bartholin cyst noted. No cervical motion tenderness noted. Negative chandelier sign. Normal bimanual exam. Uterine size normal. Bladder normal to palpation. Uterine consistency normal. Normal cervical palpation. Uterine mobility normal. Uterine shape normal. Normal adnexa. Normal rectovaginal exam. Back: No CVA tenderness. Full range of motion noted. Skin: Skin warm and dry. Normal skin color. Normal skin turgor. No rashes/lesions/lacerations noted. Extremities: No lower extremity edema. Extremities exhibit normal range of motion. Extremities nontender. Neuro: Oriented X 3. No motor deficit. No sensory deficit. Reflexes normal. <ROYAL Sauer - Last Filed: 05/24/22 14:56> Course Course Course Narrative: RME performed by Estephania Roman PA-C. Patient is a 31 year old female presenting to the emergency department for vaginal bleeding. Patient states that she was having some vaginal discomfort like something was shoved into her canal. Labs ordered. Patient placed back in the waiting room pending room availability. <ROYAL Mcintyre - Last Filed: 05/24/22 12:09> Reevaluation(s) Reevaluation #1: - 31-year-old female presenting to the ER with complaints of suprapubic abdominal cramping, vaginal bleeding, vaginal itching and feeling a lump inside her vaginal canal since last night. patient is well appearing, non-toxic, and vital signs are reassuring. Physical exam reveals scant amount of vaginal bleeding without CMT or adnexal tenderness/enlargement. Lab work is reassuring with no signs of anemia, infection, electrolyte abnormality or bleeding tendency. Urinalysis only shows large blood, will wait for urine culture. Beta quant is negative. Patient will be discharged home with diagnosis of menorrhagia. Patient reports pruritus therefore possibly yeast infection will treat for yeast infection. Will wait for the results of urine culture, gonorrhea, BV, and Chlamydia tests. 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 Patient understands agrees with this plan. <ROYAL Sauer - Last Filed: 05/24/22 14:56> Time: 14:49 <ROYAL Sauer - Last Filed: 05/24/22 14:56> Medical Decision Making Lab Data MDM Lab Attestation statement: I reviewed the patient's lab results. <ROYAL Sauer - Last Filed: 05/24/22 14:56> Result Diagrams: 05/24/22 12:19 05/24/22 12:19 <ROYAL Mcintyre - Last Filed: 05/24/22 12:09> Labs: Lab Results 05/24/22 05/24/22 05/24/22 Range/Units 12:19 12:19 12:19 WBC 8.6 (4.8-10.8) X10*3/uL RBC 4.92 (4.20-5.50) X10*6/uL Hgb 13.8 (12.0-16.0) g/dl Hct 41.4 (37.0-47.0) % MCV 84.1 (80.0-98.0) fL MCH 28.0 (27.0-33.0) pg MCHC 33.3 (31.0-35.0) g/dl RDW 12.8 (11.0-16.0) % Plt Count 437 H (160-400) X10*3/uL MPV 9.1 L (9.4-12.3) fL Immature Gran % (Auto) 0.3 (0.0-0.4) % Neut % (Auto) 59.4 (45-73) % Lymph % (Auto) 29.0 (20-40) % [place] % (Auto) 10.2 (2-11) % Eos % (Auto) 0.6 (0-4) % Baso % (Auto) 0.5 (0-2) % Lymph # (Auto) 2.5 (1.2-4.9) X10*3/uL [place] # (Auto) 0.9 (0.1-1.2) X10*3/uL Eos # (Auto) 0.1 (0.0-0.4) X10*3/uL Baso # (Auto) 0.0 (0.0-0.2) X10*3/uL Abs Immat Gran (auto) 0.03 (0.00-0.03) X10*3/uL Absolute Neuts (auto) 5.1 (2.0-8.3) x10*3/uL Absolute Nucleated RBC 0.000 (0.0-0.012) X10*3/uL Nucleated RBC % (auto) 0.0 (0.0-0.2) /100WBC ESR 63 H (0-20) MM/HR PT (10.0-13.1) SEC INR (0.9-1.1) APTT (26.0-36.4) SEC Sodium 137 (135-145) mmol/L Potassium 4.2 (3.3-5.1) mmol/L Chloride 106 (96-108) mmol/L Carbon Dioxide 22 (22-29) mmol/L Anion Gap 13 (12-20) BUN 15 (9-16) mg/dL Creatinine 0.78 (0.5-1.4) mg/dL Estim Creat Clear Calc 117.6 Estimated GFR > 60 Random Glucose 92 (60-115) mg/dL Calcium 9.4 (8.4-10.2) mg/dL Total Bilirubin 0.4 (0.0-1.0) mg/dL AST 17 (5-31) U/L ALT 29 (0-31) U/L Alkaline Phosphatase 99 (39-117) U/L C-Reactive Protein 1.51 H (< or = 0.50) mg/dL Total Protein 7.6 (6.5-8.0) g/dL Albumin 3.9 (3.5-5.0) g/dL Beta HCG, Quant < 2 mIU/mL Urine Color Urine Appearance Urine pH (5.0-9.0) Ur Specific Stover (1.005-1.025) Urine Protein (Neg-Trace) mg/dL Urine Glucose (UA) (Negative) mg/dL Urine Ketones (Negative) mg/dL Urine Blood (Negative) Urine Nitrite (Negative) Ur Leukocyte Esterase (Negative) Urine RBC (0-2) /HPF Urine WBC (0-5) /HPF Ur Squamous Epith Cells (0-2) /HPF Urine Bacteria (None Seen) Hyaline Casts (0-2) /LPF Micaela species DNA (Negative) Chlam trachomat DNA PCR (Not Detect.) Gardnerella DNA Probe (Negative) N.gonorrhoeae DNA (PCR) (Not Detect.) Trichomonas DNA Probe (Negative) 05/24/22 05/24/22 05/24/22 Range/Units 12:19 13:54 13:54 WBC (4.8-10.8) X10*3/uL RBC (4.20-5.50) X10*6/uL Hgb (12.0-16.0) g/dl Hct (37.0-47.0) % MCV (80.0-98.0) fL MCH (27.0-33.0) pg MCHC (31.0-35.0) g/dl RDW (11.0-16.0) % Plt Count (160-400) X10*3/uL MPV (9.4-12.3) fL Immature Gran % (Auto) (0.0-0.4) % Neut % (Auto) (45-73) % Lymph % (Auto) (20-40) % [place]oul[place] % (Auto) (2-11) % Eos % (Auto) (0-4) % Baso % (Auto) (0-2) % Lymph # (Auto) (1.2-4.9) X10*3/uL [place] # (Auto) (0.1-1.2) X10*3/uL Eos # (Auto) (0.0-0.4) X10*3/uL Baso # (Auto) (0.0-0.2) X10*3/uL Abs Immat Gran (auto) (0.00-0.03) X10*3/uL Absolute Neuts (auto) (2.0-8.3) x10*3/uL Absolute Nucleated RBC (0.0-0.012) X10*3/uL Nucleated RBC % (auto) (0.0-0.2) /100WBC ESR (0-20) MM/HR PT 13.4 H (10.0-13.1) SEC INR 1.2 H (0.9-1.1) APTT 30.7 (26.0-36.4) SEC Sodium (135-145) mmol/L Potassium (3.3-5.1) mmol/L Chloride (96-108) mmol/L Carbon Dioxide (22-29) mmol/L Anion Gap (12-20) BUN (9-16) mg/dL Creatinine (0.5-1.4) mg/dL Estim Creat Clear Calc Estimated GFR Random Glucose (60-115) mg/dL Calcium (8.4-10.2) mg/dL Total Bilirubin (0.0-1.0) mg/dL AST (5-31) U/L ALT (0-31) U/L Alkaline Phosphatase (39-117) U/L C-Reactive Protein (< or = 0.50) mg/dL Total Protein (6.5-8.0) g/dL Albumin (3.5-5.0) g/dL Beta HCG, Quant mIU/mL Urine Color Urine Appearance Urine pH (5.0-9.0) Ur Specific Stover (1.005-1.025) Urine Protein (Neg-Trace) mg/dL Urine Glucose (UA) (Negative) mg/dL Urine Ketones (Negative) mg/dL Urine Blood (Negative) Urine Nitrite (Negative) Ur Leukocyte Esterase (Negative) Urine RBC (0-2) /HPF Urine WBC (0-5) /HPF Ur Squamous Epith Cells (0-2) /HPF Urine Bacteria (None Seen) Hyaline Casts (0-2) /LPF Micaela species DNA Negative (Negative) Chlam trachomat DNA PCR NOT DETECTED (Not Detect.) Gardnerella DNA Probe Positive A (Negative) N.gonorrhoeae DNA (PCR) NOT DETECTED (Not Detect.) Trichomonas DNA Probe Negative (Negative) 05/24/22 Range/Units 14:07 WBC (4.8-10.8) X10*3/uL RBC (4.20-5.50) X10*6/uL Hgb (12.0-16.0) g/dl Hct (37.0-47.0) % MCV (80.0-98.0) fL MCH (27.0-33.0) pg MCHC (31.0-35.0) g/dl RDW (11.0-16.0) % Plt Count (160-400) X10*3/uL MPV (9.4-12.3) fL Immature Gran % (Auto) (0.0-0.4) % Neut % (Auto) (45-73) % Lymph % (Auto) (20-40) % [place]oul[place] % (Auto) (2-11) % Eos % (Auto) (0-4) % Baso % (Auto) (0-2) % Lymph # (Auto) (1.2-4.9) X10*3/uL [place] # (Auto) (0.1-1.2) X10*3/uL Eos # (Auto) (0.0-0.4) X10*3/uL Baso # (Auto) (0.0-0.2) X10*3/uL Abs Immat Gran (auto) (0.00-0.03) X10*3/uL Absolute Neuts (auto) (2.0-8.3) x10*3/uL Absolute Nucleated RBC (0.0-0.012) X10*3/uL Nucleated RBC % (auto) (0.0-0.2) /100WBC ESR (0-20) MM/HR PT (10.0-13.1) SEC INR (0.9-1.1) APTT (26.0-36.4) SEC Sodium (135-145) mmol/L Potassium (3.3-5.1) mmol/L Chloride (96-108) mmol/L Carbon Dioxide (22-29) mmol/L Anion Gap (12-20) BUN (9-16) mg/dL Creatinine (0.5-1.4) mg/dL Estim Creat Clear Calc Estimated GFR Random Glucose (60-115) mg/dL Calcium (8.4-10.2) mg/dL Total Bilirubin (0.0-1.0) mg/dL AST (5-31) U/L ALT (0-31) U/L Alkaline Phosphatase (39-117) U/L C-Reactive Protein (< or = 0.50) mg/dL Total Protein (6.5-8.0) g/dL Albumin (3.5-5.0) g/dL Beta HCG, Quant mIU/mL Urine Color Yellow Urine Appearance Cloudy Urine pH 5.5 (5.0-9.0) Ur Specific Stover 1.025 (1.005-1.025) Urine Protein 30 (1+) H (Neg-Trace) mg/dL Urine Glucose (UA) Negative (Negative) mg/dL Urine Ketones Trace (Negative) mg/dL Urine Blood Large (3+) H (Negative) Urine Nitrite Negative (Negative) Ur Leukocyte Esterase Trace H (Negative) Urine RBC >20 H (0-2) /HPF Urine WBC 0-5 (0-5) /HPF Ur Squamous Epith Cells 6-10 (0-2) /HPF Urine Bacteria 2+ (None Seen) Hyaline Casts 0-2 (0-2) /LPF Micaela species DNA (Negative) Chlam trachomat DNA PCR (Not Detect.) Gardnerella DNA Probe (Negative) N.gonorrhoeae DNA (PCR) (Not Detect.) Trichomonas DNA Probe (Negative) <ROYAL Mcintyre - Last Filed: 05/24/22 12:09> Lab Results 05/24/22 05/24/22 05/24/22 Range/Units 12:19 12:19 12:19 WBC 8.6 (4.8-10.8) X10*3/uL RBC 4.92 (4.20-5.50) X10*6/uL Hgb 13.8 (12.0-16.0) g/dl Hct 41.4 (37.0-47.0) % MCV 84.1 (80.0-98.0) fL MCH 28.0 (27.0-33.0) pg MCHC 33.3 (31.0-35.0) g/dl RDW 12.8 (11.0-16.0) % Plt Count 437 H (160-400) X10*3/uL MPV 9.1 L (9.4-12.3) fL Immature Gran % (Auto) 0.3 (0.0-0.4) % Neut % (Auto) 59.4 (45-73) % Lymph % (Auto) 29.0 (20-40) % [place] % (Auto) 10.2 (2-11) % Eos % (Auto) 0.6 (0-4) % Baso % (Auto) 0.5 (0-2) % Lymph # (Auto) 2.5 (1.2-4.9) X10*3/uL [place] # (Auto) 0.9 (0.1-1.2) X10*3/uL Eos # (Auto) 0.1 (0.0-0.4) X10*3/uL Baso # (Auto) 0.0 (0.0-0.2) X10*3/uL Abs Immat Gran (auto) 0.03 (0.00-0.03) X10*3/uL Absolute Neuts (auto) 5.1 (2.0-8.3) x10*3/uL Absolute Nucleated RBC 0.000 (0.0-0.012) X10*3/uL Nucleated RBC % (auto) 0.0 (0.0-0.2) /100WBC ESR 63 H (0-20) MM/HR PT (10.0-13.1) SEC INR (0.9-1.1) APTT (26.0-36.4) SEC Sodium 137 (135-145) mmol/L Potassium 4.2 (3.3-5.1) mmol/L Chloride 106 (96-108) mmol/L Carbon Dioxide 22 (22-29) mmol/L Anion Gap 13 (12-20) BUN 15 (9-16) mg/dL Creatinine 0.78 (0.5-1.4) mg/dL Estim Creat Clear Calc 117.6 Estimated GFR > 60 Random Glucose 92 (60-115) mg/dL Calcium 9.4 (8.4-10.2) mg/dL Total Bilirubin 0.4 (0.0-1.0) mg/dL AST 17 (5-31) U/L ALT 29 (0-31) U/L Alkaline Phosphatase 99 (39-117) U/L C-Reactive Protein 1.51 H (< or = 0.50) mg/dL Total Protein 7.6 (6.5-8.0) g/dL Albumin 3.9 (3.5-5.0) g/dL Beta HCG, Quant < 2 mIU/mL Urine Color Urine Appearance Urine pH (5.0-9.0) Ur Specific Stover (1.005-1.025) Urine Protein (Neg-Trace) mg/dL Urine Glucose (UA) (Negative) mg/dL Urine Ketones (Negative) mg/dL Urine Blood (Negative) Urine Nitrite (Negative) Ur Leukocyte Esterase (Negative) Urine RBC (0-2) /HPF Urine WBC (0-5) /HPF Ur Squamous Epith Cells (0-2) /HPF Urine Bacteria (None Seen) Hyaline Casts (0-2) /LPF Micaela species DNA (Negative) Chlam trachomat DNA PCR (Not Detect.) Gardnerella DNA Probe (Negative) N.gonorrhoeae DNA (PCR) (Not Detect.) Trichomonas DNA Probe (Negative) 05/24/22 05/24/22 05/24/22 Range/Units 12:19 13:54 13:54 WBC (4.8-10.8) X10*3/uL RBC (4.20-5.50) X10*6/uL Hgb (12.0-16.0) g/dl Hct (37.0-47.0) % MCV (80.0-98.0) fL MCH (27.0-33.0) pg MCHC (31.0-35.0) g/dl RDW (11.0-16.0) % Plt Count (160-400) X10*3/uL MPV (9.4-12.3) fL Immature Gran % (Auto) (0.0-0.4) % Neut % (Auto) (45-73) % Lymph % (Auto) (20-40) % [place]oul[place] % (Auto) (2-11) % Eos % (Auto) (0-4) % Baso % (Auto) (0-2) % Lymph # (Auto) (1.2-4.9) X10*3/uL [place] # (Auto) (0.1-1.2) X10*3/uL Eos # (Auto) (0.0-0.4) X10*3/uL Baso # (Auto) (0.0-0.2) X10*3/uL Abs Immat Gran (auto) (0.00-0.03) X10*3/uL Absolute Neuts (auto) (2.0-8.3) x10*3/uL Absolute Nucleated RBC (0.0-0.012) X10*3/uL Nucleated RBC % (auto) (0.0-0.2) /100WBC ESR (0-20) MM/HR PT 13.4 H (10.0-13.1) SEC INR 1.2 H (0.9-1.1) APTT 30.7 (26.0-36.4) SEC Sodium (135-145) mmol/L Potassium (3.3-5.1) mmol/L Chloride (96-108) mmol/L Carbon Dioxide (22-29) mmol/L Anion Gap (12-20) BUN (9-16) mg/dL Creatinine (0.5-1.4) mg/dL Estim Creat Clear Calc Estimated GFR Random Glucose (60-115) mg/dL Calcium (8.4-10.2) mg/dL Total Bilirubin (0.0-1.0) mg/dL AST (5-31) U/L ALT (0-31) U/L Alkaline Phosphatase (39-117) U/L C-Reactive Protein (< or = 0.50) mg/dL Total Protein (6.5-8.0) g/dL Albumin (3.5-5.0) g/dL Beta HCG, Quant mIU/mL Urine Color Urine Appearance Urine pH (5.0-9.0) Ur Specific Stover (1.005-1.025) Urine Protein (Neg-Trace) mg/dL Urine Glucose (UA) (Negative) mg/dL Urine Ketones (Negative) mg/dL Urine Blood (Negative) Urine Nitrite (Negative) Ur Leukocyte Esterase (Negative) Urine RBC (0-2) /HPF Urine WBC (0-5) /HPF Ur Squamous Epith Cells (0-2) /HPF Urine Bacteria (None Seen) Hyaline Casts (0-2) /LPF Micaela species DNA Negative (Negative) Chlam trachomat DNA PCR NOT DETECTED (Not Detect.) Gardnerella DNA Probe Positive A (Negative) N.gonorrhoeae DNA (PCR) NOT DETECTED (Not Detect.) Trichomonas DNA Probe Negative (Negative) 05/24/22 Range/Units 14:07 WBC (4.8-10.8) X10*3/uL RBC (4.20-5.50) X10*6/uL Hgb (12.0-16.0) g/dl Hct (37.0-47.0) % MCV (80.0-98.0) fL MCH (27.0-33.0) pg MCHC (31.0-35.0) g/dl RDW (11.0-16.0) % Plt Count (160-400) X10*3/uL MPV (9.4-12.3) fL Immature Gran % (Auto) (0.0-0.4) % Neut % (Auto) (45-73) % Lymph % (Auto) (20-40) % [place]oul[place] % (Auto) (2-11) % Eos % (Auto) (0-4) % Baso % (Auto) (0-2) % Lymph # (Auto) (1.2-4.9) X10*3/uL [place] # (Auto) (0.1-1.2) X10*3/uL Eos # (Auto) (0.0-0.4) X10*3/uL Baso # (Auto) (0.0-0.2) X10*3/uL Abs Immat Gran (auto) (0.00-0.03) X10*3/uL Absolute Neuts (auto) (2.0-8.3) x10*3/uL Absolute Nucleated RBC (0.0-0.012) X10*3/uL Nucleated RBC % (auto) (0.0-0.2) /100WBC ESR (0-20) MM/HR PT (10.0-13.1) SEC INR (0.9-1.1) APTT (26.0-36.4) SEC Sodium (135-145) mmol/L Potassium (3.3-5.1) mmol/L Chloride (96-108) mmol/L Carbon Dioxide (22-29) mmol/L Anion Gap (12-20) BUN (9-16) mg/dL Creatinine (0.5-1.4) mg/dL Estim Creat Clear Calc Estimated GFR Random Glucose (60-115) mg/dL Calcium (8.4-10.2) mg/dL Total Bilirubin (0.0-1.0) mg/dL AST (5-31) U/L ALT (0-31) U/L Alkaline Phosphatase (39-117) U/L C-Reactive Protein (< or = 0.50) mg/dL Total Protein (6.5-8.0) g/dL Albumin (3.5-5.0) g/dL Beta HCG, Quant mIU/mL Urine Color Yellow Urine Appearance Cloudy Urine pH 5.5 (5.0-9.0) Ur Specific Stover 1.025 (1.005-1.025) Urine Protein 30 (1+) H (Neg-Trace) mg/dL Urine Glucose (UA) Negative (Negative) mg/dL Urine Ketones Trace (Negative) mg/dL Urine Blood Large (3+) H (Negative) Urine Nitrite Negative (Negative) Ur Leukocyte Esterase Trace H (Negative) Urine RBC >20 H (0-2) /HPF Urine WBC 0-5 (0-5) /HPF Ur Squamous Epith Cells 6-10 (0-2) /HPF Urine Bacteria 2+ (None Seen) Hyaline Casts 0-2 (0-2) /LPF Micaela species DNA (Negative) Chlam trachomat DNA PCR (Not Detect.) Gardnerella DNA Probe (Negative) N.gonorrhoeae DNA (PCR) (Not Detect.) Trichomonas DNA Probe (Negative) <ROYAL Sauer - Last Filed: 05/24/22 14:56> Discharge Plan Discharge Clinical Impression: Menorrhagia, Micaela vaginitis <ROYAL Mcintyre - Last Filed: 05/24/22 12:09> Patient Disposition: Home, Self-Care <ROYAL Mcintyre - Last Filed: 05/24/22 12:09> Instructions: Yeast Infection (ED), Menorrhagia (ED) <ROYAL Mcintyre - Last Filed: 05/24/22 12:09> Additional Instructions: You have pending lab results if any are positive you will be contacted within 3-5 days. If you have the patient portal your results may be there before we contact you. Return if any new or worsening symptoms. Follow-up with your PCP/OBGYN. <ROYAL Mcintyre - Last Filed: 05/24/22 12:09> Prescriptions: New fluconazole [Diflucan] 150 mg tablet 150 mg PO Q3D 0 Days Qty: 2 0RF Rx Instructions: may repeat second dose 72 hrs after first dose if symptoms persist No Action pantoprazole 40 mg tablet,delayed release (DR/EC) 40 mg PO DAILY Qty: 20 0RF Rx Instructions: Please take 1 tablet half an hour before breakfast. famotidine 20 mg tablet 20 mg PO BEDTIME Qty: 20 0RF Rx Instructions: Please take 1 tablet at bedtime clindamycin HCl 300 mg capsule 300 mg PO TID 10 Days Qty: 30 0RF prednisone 20 mg tablet 40 mg PO DAILY 5 Days Qty: 10 0RF albuterol sulfate 90 mcg/actuation HFA aerosol inhaler 1 inh inhalation QID PRN (Reason: shortness of breath or wheezing) Qty: 8.5 0RF naproxen 500 mg tablet 500 mg PO BID 7 Days Qty: 14 0RF Rx Instructions: Do NOT start until 01/05/2022 <ROYAL Mcintyre - Last Filed: 05/24/22 12:09> Referrals: Izabella Milton MD [Primary Care Provider] - 2 days <ROYAL Mcintyre - Last Filed: 05/24/22 12:09> Stand Alone Forms: Work/School Release <ROYAL Mcintyre - Last Filed: 05/24/22 12:09> Interventions: ED Discharge Assessment Last Done: 05/24/22 15:03 <ROYAL Mcintyre - Last Filed: 05/24/22 12:09> Discharge Date/Time: 05/24/22 15:06 <ROYAL Mcintyre - Last Filed: 05/24/22 12:09>
[2022-05-24 12:09] VITALS: BP 115/76; PULSE 96; RESP 18; TEMP 35.8; O2SAT 97; BMI 44.4
[2022-05-24 12:31] LABS: MANUAL DIFF FLAG NO
[2022-05-24 12:32] LABS: Basophils Percent Auto 0.5 % (0-2); Eosinophils Absolute Auto 0.1 X10*3/uL (0.0-0.4); Eosinophils Percent Auto 0.6 % (0-4); Hematocrit 41.4 % (37.0-47.0); Hemoglobin 13.8 g/dl (12.0-16.0); Imm Gran Abs Auto 0.03 X10*3/uL (0.00-0.03); Imm Gran Pct Auto 0.3 % (0.0-0.4); Lymphocytes Absolute Auto 2.5 X10*3/uL (1.2-4.9); Mean Corpuscular HGB Conc 33.3 g/dl (31.0-35.0); Mean Corpuscular Volume 84.1 fL (80.0-98.0); Mean Platelet Volume 9.1 fL (9.4-12.3); Monocytes Absolute Auto 0.9 X10*3/uL (0.1-1.2); Monocytes Percent Auto 10.2 % (2-11); Neutrophils Absolute Auto 5.1 x10*3/uL (2.0-8.3); Neutrophils Percent Auto 59.4 % (45-73); Platelet Count 437 X10*3/uL (160-400); Red Blood Count 4.92 X10*6/uL (4.20-5.50); Red Cell Distribution Width 12.8 % (11.0-16.0); White Blood Count 8.6 X10*3/uL (4.8-10.8)
[2022-05-24 12:38] LABS: INTERNATIONAL NORM RATIO 1.2 (0.9-1.1); Prothrombin Time 13.4 SEC (10.0-13.1)
[2022-05-24 12:40] LABS: Partial Thromboplastin Time 30.7 SEC (26.0-36.4)
[2022-05-24 12:55] LABS: Alanine Aminotransferase 29 U/L (0-31); Albumin Level 3.9 g/dL (3.5-5.0); Alkaline Phosphatase 99 U/L (39-117); Anion Gap 13 (12-20); Aspartate Amino Transferase 17 U/L (5-31); Bilirubin Total 0.4 mg/dL (0.0-1.0); Blood Urea Nitrogen 15 mg/dL (9-16); C Reactive Protein 1.51 mg/dL (< or = 0.50); Calcium 9.4 mg/dL (8.4-10.2); Carbon Dioxide 22 mmol/L (22-29); Chloride 106 mmol/L (96-108); Creatinine Clr Calc Pharmacy 117.6; Estimated Glomerular Filt Rate > 60; Glucose Random 92 mg/dL (60-115); Potassium 4.2 mmol/L (3.3-5.1); Sodium 137 mmol/L (135-145); Total Protein 7.6 g/dL (6.5-8.0)
[2022-05-24 13:02] LABS: HCG Quantitative < 2 mIU/mL
[2022-05-24 13:18] LABS: Erythrocyte Sedimentation Rate 63 MM/HR (0-20)
[2022-05-24 14:21] LABS: Appearance Urine Cloudy; Color Urine Yellow; Glucose Urine UA Negative (Negative); Leukocyte Esterase Urine Trace (Negative); Nitrite Urine Negative (Negative); PH 5.5 (5.0-9.0); Specific Gravity - Urine 1.025 (1.005-1.025); UMIC TRIGGER UACC YES; Urine Blood Large (3+) (Negative); Urine Ketones Trace mg/dL (Negative); Urine Protein 30 (1+) mg/dL (Neg-Trace)
[2022-05-24 14:38] LABS: Bacteria Urine 2+ (None Seen); Hyaline Casts Urine 0-2 /LPF (0-2); RBC Urine >20 /HPF (0-2); WBC Urine 0-5 /HPF (0-5)
[2022-05-24 15:32] LABS: CT PCR NOT DETECTED (Not Detect.); NG PCR NOT DETECTED (Not Detect.)
[2022-05-25 13:23] LABS: BV Int Neg Control Negative (Negative); BV Int Pos Control Positive (Positive)
== END 2022-05-24 15:06 | disposition home or self-care (01) ==
PROVIDERS: Physician Assistant Medical; Emergency Provider Student in an Organized Health Care Education/Training Program; PCP Internal Medicine
DX: N76.0 Acute vaginitis (principal); B37.31 Acute candidiasis of vulva and vagina; N92.0 Excessive and frequent menstruation with regular cycle
CPT/HCPCS: 0353U; 36415; 80053; 81001; 84702; 85025; 85610; 85652; 85730; 86140; 87480; 87510; 87660; 99282; 99283

== ENCOUNTER 2022-09-04 17:16 | Emergency (ER) | payer OTHER, MEDICAID, SELFPAY ==
[2022-09-04 17:23] VITALS: BP 126/67; PULSE 100; RESP 18; TEMP 36.8; O2SAT 100; BMI 45.3
--- NOTE | 2022-09-04 17:25 | ED_ITS ---
HPI - Psych General Chief Complaint: Anxiety <ROYAL Ram - Last Filed: 09/04/22 17:27> Stated Complaint: panic attack/ anxiety, cant sleep <ROYAL Ram - Last Filed: 09/04/22 17:27> Time Seen by Provider: 09/04/22 18:59 <ROYAL Ram - Last Filed: 09/04/22 17:27> Source: patient <Bella Mehta MD - Last Filed: 09/04/22 19:14> Mode of arrival: ambulatory <Bella Mehta MD - Last Filed: 09/04/22 19:14> Limitations: no limitations <Bella Mehta MD - Last Filed: 09/04/22 19:14> History of Present Illness HPI Narrative: Patient comes emergency room complaining of anxiety and depression. Patient states that since very 2022, patient has had worsening anxiety and depression. Patient states that she is overwhelmed, patient's 18-year-old daughter is going away to school, patient's mother has health problems. Patient feels very overwhelmed. Patient denies suicidal or homicidal ideation. Patient states that when she was in high school, she was diagnosed with depression and used to take medications. Around that time, patient became and patient stopped taking medications altogether because she was feeling better. For the last 18 years, patient has not taking any medications. Patient states that for the last week she has had uncontrollable crying and worsening anxiety <Bella Mehta MD - Last Filed: 09/04/22 19:14> Related Data Home Medications: Previous Rx's Medication Instructions Recorded famotidine 20 mg tablet 20 mg PO BEDTIME #20 tabs 12/28/20 pantoprazole 40 mg tablet,delayed 40 mg PO DAILY #20 tabs 12/28/20 release albuterol sulfate 90 mcg/actuation 1 inh inhalation QID PRN shortness 09/19/21 aerosol inhaler of breath or wheezing #8.5 grams clindamycin HCl 300 mg capsule 300 mg PO TID pharyngitis 10 days 09/19/21 #30 caps prednisone 20 mg tablet 40 mg PO DAILY bronchospasm 5 days 09/19/21 #10 tabs naproxen 500 mg tablet 500 mg PO BID 7 days #14 tabs 01/04/22 fluconazole 150 mg tablet 150 mg PO Q3D 2 doses #2 tabs 05/24/22 (Diflucan) metronidazole 500 mg tablet 500 mg PO BID #14 tabs 05/25/22 <ROYAL Ram - Last Filed: 09/04/22 17:27> Allergies/Adverse Reactions: Allergies Allergy/AdvReac Type Severity Reaction Status Date / Time penicillin V Allergy Unknown Unknown Verified 05/24/22 12:12 Penicillins [PENICILLINS] Allergy Unknown UNKNOWN Verified 05/24/22 12:12 <ROYAL Ram - Last Filed: 09/04/22 17:27> Review of Systems Review of Systems: Constitutional : No Weight loss, No Fever, No Chills, No Night Sweats, No Fatigue, No Malaise ENT/Mouth : No Hearing loss, No Ear Pain, No Nasal Congestion, No Sinus Pain, No Hoarseness, No sore throat, No Rhinorrhea, No Swallowing Difficulty Eyes: No Eye Pain, No Swelling, No Redness, No Foreign Body, No Discharge, No Vision Changes Cardiovascular : No Chest Pain, No SOB, No Dyspnea on Exertion, No Orthopnea, No Edema, No Palpitations Respiratory : No Cough, No Sputum, No Wheezing, No Smoke Exposure, No Dyspnea Gastrointestinal : No Nausea, No Vomiting, No Diarrhea, No Constipation, No abdominal Pain, No Hematochezia, No Melena Genitourinary : no irregular bleeding, No Dysuria, No Urinary Frequency, No Hematuria, No Urinary Incontinence, No Urgency, No Flank Pain, No Urinary Flow Changes, No Hesitancy Musculoskeletal : No joint pain, No Myalgias, No Joint Swelling Skin : No Skin Lesions, No rash Neuro : No Weakness, No Numbness, No Paresthesias, No Loss of Consciousness, No Dizziness, No Headache Psych : Complain of anxiety and depression, no SI or HI Heme/Lymph: No Bruising, No Bleeding,No Lymphadenopathy Endocrine : No Polyuria, No Polydipsia, No Temperature Intolerance <Bella Mehta MD - Last Filed: 09/04/22 19:14> [facility] Past Medical History Medical History: Medical History (Updated 09/04/22 @ 19:11 by Bella Mehta MD) Anxiety and depression No known health problems <ROYAL Ram - Last Filed: 09/04/22 17:27> Social History Social History: Social History Patient Tobacco Use Status: Never used Tobacco <ROYAL Ram - Last Filed: 09/04/22 17:27> Physical Exam Vital Signs: Vital Signs: Last Vital Signs Temp 98.3 F 09/04/22 17:23 Pulse 100 09/04/22 17:23 Resp 18 09/04/22 17:23 BP 126/67 09/04/22 17:23 Pulse Ox 100 09/04/22 17:23 O2 Del Method Room Air 09/04/22 17:23 BMI result Body Mass Index 45.3 <ROYAL Ram - Last Filed: 09/04/22 17:27> Vital Signs: Last Vital Signs Temp 98.3 F 09/04/22 17:23 Pulse 100 09/04/22 17:23 Resp 18 09/04/22 17:23 BP 126/67 09/04/22 17:23 Pulse Ox 100 09/04/22 17:23 O2 Del Method Room Air 09/04/22 17:23 BMI result Body Mass Index 45.3 <Bella Mehta MD - Last Filed: 09/04/22 19:14> Const: Other: Appearance: Alert. Oriented X3. No acute distress. Eyes: Pupils equal, round and reactive to light. ENT: Pharynx normal. Neck: Normal inspection. Neck supple. No lymph nodes noted. No crepitus CVS: Normal heart rate and rhythm. Pulses normal. Normal S1 and S2 Respiratory: No respiratory distress. Breath sounds normal. No Wheezing. No rales Abdomen: Soft and nontender. No rigidity. No distention. Skin: Skin warm and dry. Normal skin color. Normal skin turgor. Extremities: No lower extremity edema. No Lacerations. No Rash Neuro: Oriented X 3. No motor deficit. No sensory deficit. Moving all extremities. No slurred speech. CN 2 through 12 grossly intact Psych: calm, cooperative, seems depressed, teary <Bella Mehta MD - Last Filed: 09/04/22 19:14> Course Course Course Narrative: RME - 31 yo female presents to the ER for evaluation of worsening anxiety and depression for the last 1 week. Panic attacks and uncontrolled crying that started yesterday. Cannot perform her daily activates or care for her children. No SI or HI. She is not on any medications for anxiety or depression. Not sleeping well. Plan: CARE team consult <ROYAL Ram - Last Filed: 09/04/22 17:27> Medical Decision Making Medical Decision Making MDM Narrative: -patient's labs pending -care team consult pending -physician observation started at 19:00 <Bella Mehta MD - Last Filed: 09/04/22 19:14> Discharge Plan Discharge Clinical Impression: Anxiety and depression <ROYAL Ram - Last Filed: 09/04/22 17:27> Patient Disposition: Still a Patient <ROYAL Ram - Last Filed: 09/04/22 17:27> Prescriptions: No Action pantoprazole 40 mg tablet,delayed release (DR/EC) 40 mg PO DAILY Qty: 20 0RF Rx Instructions: Please take 1 tablet half an hour before breakfast. famotidine 20 mg tablet 20 mg PO BEDTIME Qty: 20 0RF Rx Instructions: Please take 1 tablet at bedtime clindamycin HCl 300 mg capsule 300 mg PO TID 10 Days Qty: 30 0RF prednisone 20 mg tablet 40 mg PO DAILY 5 Days Qty: 10 0RF albuterol sulfate 90 mcg/actuation HFA aerosol inhaler 1 inh inhalation QID PRN (Reason: shortness of breath or wheezing) Qty: 8.5 0RF naproxen 500 mg tablet 500 mg PO BID 7 Days Qty: 14 0RF Rx Instructions: Do NOT start until 01/05/2022 fluconazole [Diflucan] 150 mg tablet 150 mg PO Q3D 0 Days Qty: 2 0RF Rx Instructions: may repeat second dose 72 hrs after first dose if symptoms persist metronidazole 500 mg tablet 500 mg PO BID Qty: 14 0RF <ROYAL Ram - Last Filed: 09/04/22 17:27>
--- NOTE | 2022-09-04 19:06 | ED.ANXIETY ---
HPI - Anxiety General Chief Complaint: Anxiety Stated Complaint: panic attack/ anxiety, cant sleep Time Seen by Provider: 09/04/22 18:59 Source: patient Related Data Previous Rx's Medication Instructions Recorded albuterol sulfate 90 mcg/actuation 1 inh inhalation QID PRN shortness 09/19/21 aerosol inhaler of breath or wheezing #8.5 grams Allergies Allergy/AdvReac Type Severity Reaction Status Date / Time penicillin V Allergy Unknown Unknown Verified 05/24/22 12:12 Penicillins [PENICILLINS] Allergy Unknown UNKNOWN Verified 05/24/22 12:12 [facility] Past Medical History Medical History (Updated 09/05/22 @ 00:32 by Alec Yo) Anxiety and depression No known health problems Social History Social History Patient Tobacco Use Status: Never used Tobacco Physical Exam Vital Signs: Vital Signs: Last Vital Signs Temp 98.3 F 09/04/22 17: Pulse 100 09/04/22 17:23 Resp 18 09/04/22 17:23 BP 126/67 09/04/22 17:23 Pulse Ox 100 09/04/22 17:23 O2 Del Method Room Air 09/04/22 17:23 BMI result Body Mass Index 45.3 Medical Decision Making Lab Data 09/04/22 21:05 09/04/22 21:05 Labs: Lab Results 09/04/22 09/04/22 09/04/22 Range/Units 20:51 20:52 20:52 WBC (4.8-10.8) X10*3/uL RBC (4.20-5.50) X10*6/uL Hgb (12.0-16.0) g/dl Hct (37.0-47.0) % MCV (80.0-98.0) fL MCH (27.0-33.0) pg MCHC (31.0-35.0) g/dl RDW (11.0-16.0) % Plt Count (160-400) X10*3/uL MPV (9.4-12.3) fL Immature Gran % (Auto) (0.0-0.4) % Neut % (Auto) (45-73) % Lymph % (Auto) (20-40) % Johnson % (Auto) (2-11) % Eos % (Auto) (0-4) % Baso % (Auto) (0-2) % Lymph # (Auto) (1.2-4.9) X10*3/uL Johnson # (Auto) (0.1-1.2) X10*3/uL Eos # (Auto) (0.0-0.4) X10*3/uL Baso # (Auto) (0.0-0.2) X10*3/uL Abs Immat Gran (auto) (0.00-0.03) X10*3/uL Absolute Neuts (auto) (2.0-8.3) x10*3/uL Absolute Nucleated RBC (0.0-0.012) X10*3/uL Nucleated RBC % (auto) (0.0-0.2) /100WBC Sodium (135-145) mmol/L Potassium (3.3-5.1) mmol/L Chloride (96-108) mmol/L Carbon Dioxide (22-29) mmol/L Anion Gap (12-20) BUN (9-16) mg/dL Creatinine (0.5-1.4) mg/dL Estim Creat Clear Calc Estimated GFR Random Glucose (60-115) mg/dL Calcium (8.4-10.2) mg/dL Total Bilirubin (0.0-1.0) mg/dL AST (5-31) U/L ALT (0-31) U/L Alkaline Phosphatase (39-117) U/L Total Protein (6.5-8.0) g/dL Albumin (3.5-5.0) g/dL Urine Color Urine Appearance Urine pH (5.0-9.0) Ur Specific Brock (1.005-1.025) Urine Protein (Neg-Trace) mg/dL Urine Glucose (UA) (Negative) mg/dL Urine Ketones (Negative) mg/dL Urine Blood (Negative) Urine Nitrite (Negative) Ur Leukocyte Esterase (Negative) Urine RBC (0-2) /HPF Urine WBC (0-5) /HPF Ur Squamous Epith Cells (0-2) /HPF Urine Bacteria (None Seen) Hyaline Casts (0-2) /LPF Urine Test NEGATIVE (NEGATIVE) Urine Opiates Screen Not Detected (Not Detect) Urine Fentanyl Screen Not Detected (Not Detect) Ur Barbiturates Screen Not Detected (Not Detect) Ur Phencyclidine Scrn Not Detected (Not Detect) Ur Amphetamines Screen Not Detected (Not Detect) U Benzodiazepines Scrn Not Detected (Not Detect) Urine Cocaine Screen Not Detected (Not Detect) U Marijuana (THC) Screen Not Detected (Not Detect) Ethyl Alcohol mg/dL COVID-19 (EPIFANIO) Negative (Negative) COVID-19 Clin Com See Note 09/04/22 09/04/22 09/04/22 Range/Units 20:52 21:05 21:05 WBC 11.8 H (4.8-10.8) X10*3/uL RBC 4.80 (4.20-5.50) X10*6/uL Hgb 13.5 (12.0-16.0) g/dl Hct 41.0 (37.0-47.0) % MCV 85.4 (80.0-98.0) fL MCH 28.1 (27.0-33.0) pg MCHC 32.9 (31.0-35.0) g/dl RDW 12.6 (11.0-16.0) % Plt Count 417 H (160-400) X10*3/uL MPV 9.0 L (9.4-12.3) fL Immature Gran % (Auto) 0.3 (0.0-0.4) % Neut % (Auto) 62.6 (45-73) % Lymph % (Auto) 27.7 (20-40) % Johnson % (Auto) 8.3 (2-11) % Eos % (Auto) 0.7 (0-4) % Baso % (Auto) 0.4 (0-2) % Lymph # (Auto) 3.3 (1.2-4.9) X10*3/uL Johnson # (Auto) 1.0 (0.1-1.2) X10*3/uL Eos # (Auto) 0.1 (0.0-0.4) X10*3/uL Baso # (Auto) 0.1 (0.0-0.2) X10*3/uL Abs Immat Gran (auto) 0.03 (0.00-0.03) X10*3/uL Absolute Neuts (auto) 7.4 (2.0-8.3) x10*3/uL Absolute Nucleated RBC 0.000 (0.0-0.012) X10*3/uL Nucleated RBC % (auto) 0.0 (0.0-0.2) /100WBC Sodium 140 (135-145) mmol/L Potassium 4.5 (3.3-5.1) mmol/L Chloride 107 (96-108) mmol/L Carbon Dioxide 24 (22-29) mmol/L Anion Gap 14 (12-20) BUN 18 H (9-16) mg/dL Creatinine 0.75 (0.5-1.4) mg/dL Estim Creat Clear Calc 123.8 Estimated GFR > 60 Random Glucose 75 (60-115) mg/dL Calcium 9.3 (8.4-10.2) mg/dL Total Bilirubin 0.4 (0.0-1.0) mg/dL AST 20 (5-31) U/L ALT 35 H (0-31) U/L Alkaline Phosphatase 99 (39-117) U/L Total Protein 7.8 (6.5-8.0) g/dL Albumin 4.0 (3.5-5.0) g/dL Urine Color Yellow Urine Appearance Cloudy Urine pH 6.0 (5.0-9.0) Ur Specific Brock >= 1.030 H (1.005-1.025) Urine Protein Trace (Neg-Trace) mg/dL Urine Glucose (UA) Negative (Negative) mg/dL Urine Ketones Negative (Negative) mg/dL Urine Blood Trace H (Negative) Urine Nitrite Negative (Negative) Ur Leukocyte Esterase Trace H (Negative) Urine RBC 11-20 H (0-2) /HPF Urine WBC 0-5 (0-5) /HPF Ur Squamous Epith Cells 6-10 (0-2) /HPF Urine Bacteria 1+ (None Seen) Hyaline Casts 0-2 (0-2) /LPF Urine Test (NEGATIVE) Urine Opiates Screen (Not Detect) Urine Fentanyl Screen (Not Detect) Ur Barbiturates Screen (Not Detect) Ur Phencyclidine Scrn (Not Detect) Ur Amphetamines Screen (Not Detect) U Benzodiazepines Scrn (Not Detect) Urine Cocaine Screen (Not Detect) U Marijuana (THC) Screen (Not Detect) Ethyl Alcohol < 10 mg/dL COVID-19 (EPIFANIO) (Negative) COVID-19 Clin Com Discharge Plan Discharge Clinical Impression: Anxiety and depression Patient Disposition: Home, Self-Care Instructions: Depression (ED), Generalized Anxiety Disorder (ED) Additional Instructions: Follow-up with partial program Therapy as advised Prescriptions: No Action albuterol sulfate 90 mcg/actuation HFA aerosol inhaler 1 inh inhalation QID PRN (Reason: shortness of breath or wheezing) Qty: 8.5 0RF Interventions: ED Discharge Assessment Last Done: 09/04/22 23:41 Discharge Date/Time: 09/04/22 23:48
[2022-09-04 21:12] LABS: MANUAL DIFF FLAG NO
[2022-09-04 21:12] LABS: COVID-19 Test Negative (Negative); IDNOW Serial# BCCEAD1C
[2022-09-04 21:13] LABS: Appearance Urine Cloudy; Color Urine Yellow; Glucose Urine UA Negative (Negative); Leukocyte Esterase Urine Trace (Negative); Nitrite Urine Negative (Negative); Specific Gravity - Urine >= 1.030 (1.005-1.025); UMIC TRIGGER UA YES; Urine Blood Trace (Negative); Urine Ketones Negative (Negative); Urine Protein Trace mg/dL (Neg-Trace)
[2022-09-04 21:14] LABS: Basophils Absolute Auto 0.1 X10*3/uL (0.0-0.2); Basophils Percent Auto 0.4 % (0-2); Eosinophils Absolute Auto 0.1 X10*3/uL (0.0-0.4); Eosinophils Percent Auto 0.7 % (0-4); Hemoglobin 13.5 g/dl (12.0-16.0); Imm Gran Abs Auto 0.03 X10*3/uL (0.00-0.03); Imm Gran Pct Auto 0.3 % (0.0-0.4); Lymphocytes Absolute Auto 3.3 X10*3/uL (1.2-4.9); Lymphocytes Percent Auto 27.7 % (20-40); Mean Corpuscular HGB Conc 32.9 g/dl (31.0-35.0); Mean Corpuscular Hemoglobin 28.1 pg (27.0-33.0); Mean Corpuscular Volume 85.4 fL (80.0-98.0); Monocytes Percent Auto 8.3 % (2-11); Neutrophils Absolute Auto 7.4 x10*3/uL (2.0-8.3); Neutrophils Percent Auto 62.6 % (45-73); Platelet Count 417 X10*3/uL (160-400); Red Cell Distribution Width 12.6 % (11.0-16.0); White Blood Count 11.8 X10*3/uL (4.8-10.8)
[2022-09-04 21:18] LABS: Bacteria Urine 1+ (None Seen); Hyaline Casts Urine 0-2 /LPF (0-2); WBC Urine 0-5 /HPF (0-5)
[2022-09-04 21:20] LABS: Amphetamine Screen Urine Not Detected (Not Detect); Barbiturates, Urine Not Detected (Not Detect); Benzodiazepines Screen Urine Not Detected (Not Detect); Cannabinoid Screen Urine Not Detected (Not Detect); Cocaine Screen Urine Not Detected (Not Detect); Fentanyl, urine Not Detected (Not Detect); Opiate Screen Urine Not Detected (Not Detect); Phencyclidine Screen Urine Not Detected (Not Detect)
[2022-09-04 21:33] LABS: Alanine Aminotransferase 35 U/L (0-31); Alkaline Phosphatase 99 U/L (39-117); Anion Gap 14 (12-20); Aspartate Amino Transferase 20 U/L (5-31); Bilirubin Total 0.4 mg/dL (0.0-1.0); Blood Urea Nitrogen 18 mg/dL (9-16); Calcium 9.3 mg/dL (8.4-10.2); Carbon Dioxide 24 mmol/L (22-29); Chloride 107 mmol/L (96-108); Creatinine Clr Calc Pharmacy 123.8; Estimated Glomerular Filt Rate > 60; Ethanol < 10 mg/dL; Glucose Random 75 mg/dL (60-115); Potassium 4.5 mmol/L (3.3-5.1); Sodium 140 mmol/L (135-145); Total Protein 7.8 g/dL (6.5-8.0)
[2022-09-04 21:56] LABS: UPreg QC Valid YES; Urine Pregnancy NEGATIVE (NEGATIVE)
--- NOTE | 2022-09-05 09:15 | MHC.CARE ---
[facility] referral form filled out and faxed. Notified Care Team that referral was made.
--- NOTE | 2022-09-05 12:11 | MHC.CARE ---
Reached out to patient, she is in the waiting room at [facility] at this time, waiting for her appointment which she intends to ask about medication. She describes still feeling tired and emotional still, exhaustion makes her tired. She describes struggles to sleep, wanting to stay in bed all day, but then becomes frustrated when she is in bed because still, she cannot sleep. Patient confirms that she needs transportation to the [facility], and states she was told there is not a shuttle and she cannot take two buses that early in the morning. T/w to gain clarity as to transportation possibilities.
== END 2022-09-04 23:48 | disposition home or self-care (01) ==
PROVIDERS: Emergency Provider Emergency Medicine; PCP Internal Medicine
DX: F41.9 Anxiety disorder, unspecified (principal); F32.A Depression, unspecified; Z20.822 Contact with and (suspected) exposure to COVID-19; Z72.89 Other problems related to lifestyle; Z63.79 Other stressful life events affecting family and household; Z79.899 Other long term (current) drug therapy
CPT/HCPCS: 36415; 80053; 80307; 81001; 81003; 81025; 85025; 87635; 99283; S9485

== ENCOUNTER 2023-03-22 10:45 | Emergency (ER) | payer MEDICAID, SELFPAY ==
--- NOTE | ~2023-03-22 | CT_ITS ---
EXAMINATION: CT HEAD WITHOUT CONTRAST CLINICAL INFORMATION: Headache. COMPARISON: None available. TECHNIQUE: Contiguous axial imaging was performed from the skull base to vertex without intravenous administration of contrast. This CT examination was performed using dose optimization techniques as appropriate, variously including the following: *Automated exposure control *Adjustment of mA and/or kV according to patient size (this includes techniques or standardized protocols for targeted exams where dose is matched to indication/reason for exam; i.e. extremities or head) *Use of iterative reconstruction technique DLP: 609 mGy-cm FINDINGS: There is no acute intra-axial, extra-axial bleed, mass effect or midline shift. There is no acute infarction or lesion. There is no edema. The lateral ventricles are symmetrical in size and configuration without enlargement. The rodgers-white matter differentiation maintained normal. Bone windows reveal no calvarial abnormality. Bone windows reveal no calvarial abnormality. There is no scalp soft tissue abnormality. The paranasal sinuses and mastoid air cells are well-aerated. CT/CT head/brain wo IV con IMPRESSION: No acute intracranial process seen.
[2023-03-22 10:59] VITALS: BP 130/56; PULSE 87; RESP 16; TEMP 36.3; O2SAT 98; BMI 45.8
--- NOTE | 2023-03-22 10:59 | ED.HA ---
HPI - Headache General Chief Complaint: Headache Stated Complaint: migraine Time Seen by Provider: 03/22/23 11:04 Source: patient Mode of arrival: ambulatory Limitations: no limitations History of Present Illness HPI Narrative: 32 yo female with PMH of migraines and anxiety who reports onset of headache at 3am. No thinners, trauma, no fevers. Has had headaches on and off for 5 years PRN sumatriptan no prior imaging. She has never been woken from sleep with a headache after dreaming she was having a headache. She has no known triggers. She notes has typical pattern of pain forehead wraps around back with photophobia and nausea. MD elicited complaint: migraine Pertinent past history: migraines Onset (ago): hour(s) (3am today) Onset description: suddenly Location: frontal Severity: severe Quality & Timing: throbbing Exacerbating factors: light and noise Relieving factors: nothing Context: occurred at rest Associated symptoms: nausea and photophobia Treatments prior to arrival: prescription analgesic Related Data Previous Rx's Medication Instructions Recorded albuterol sulfate 90 mcg/actuation 1 inh inhalation QID PRN shortness 09/19/21 aerosol inhaler of breath or wheezing #8.5 grams Allergies Allergy/AdvReac Type Severity Reaction Status Date / Time penicillin V Allergy Unknown Unknown Verified 03/22/23 10:59 Penicillins [PENICILLINS] Allergy Unknown UNKNOWN Verified 03/22/23 10:59 droperidol AdvReac Mild Anxiety Uncoded 03/22/23 12:38 Review of Systems Review of Systems: Constitutional : No Fever, No Chills, No Fatigue ENT/Mouth : No sore throat, No Rhinorrhea Eyes: pos Eye Pain, No Swelling, No Redness Cardiovascular : No Chest Pain, No SOB, No Dyspnea on Exertion Respiratory : No Cough, No Sputum Gastrointestinal : pos Nausea, No Vomiting, No Diarrhea, No abdominal Pain Genitourinary : No Dysuria, No Urinary Frequency, No Hematuria, Musculoskeletal : No joint pain, No Myalgias, No Joint Swelling Skin : No Skin Lesions, No rash Neuro : No Weakness, No Numbness, No Dizziness, positive Headache Psych : No Anxiety/Panic, No Depression Heme/Lymph: No Bruising, No Bleeding,No Lymphadenopathy Endocrine : No Polyuria, No Polydipsia All other systems reviewed and are negative PMFSH Past Medical History Attestation statement: The following information was validated with the patient. Source: old records reviewed Medical History Anxiety and depression No known health problems Social History Patient Tobacco Use Status: Never used Tobacco Advance Directives: No Advance Directives Information Provided: No Physical Exam Vital Signs: Vital Signs: Last Vital Signs Temp 97.4 F 03/22/23 10:59 Pulse 87 03/22/23 10:59 Resp 16 03/22/23 10:59 BP 130/56 L 03/22/23 10:59 Pulse Ox 98 03/22/23 10:59 O2 Del Method Room Air 03/22/23 10:59 BMI result Body Mass Index 45.8 Appearance: Alert. Oriented X3. No acute distress. Eyes: Pupils equal, round and reactive to light. ENT: Pharynx normal. Neck: Normal inspection. Neck supple. no meningeal signs CVS: Normal heart rate and rhythm. Pulses normal. Respiratory: No respiratory distress. Breath sounds normal. Abdomen: Soft and nontender. Skin: Skin warm and dry. Normal skin color. Normal skin turgor. Extremities: No lower extremity edema. No calf ttp Neuro: Oriented X 3. No motor deficit. No sensory deficit. Course Course Course Narrative: RME:?32 yo female hx anxiety, depression presents w/ migraine, onset 0300 today, took sumatriptan at 0310 and went to bed, woke up at 0450 with migraine again and took another sumatriptan at that time. Temporal/ frontal migraine. Endorses nausea, photophobia. 8/10 pain. Denies jaw claudication, blurred vision, vision loss. PE: PERRLA, strength 5/5 throughout, no palpable temporal aa or scalp tenderness. Plan: Basic labs, inflammatory markers Full HPI, ROS and PE to be performed by the primary ED provider. Reevaluation(s) Reevaluation #1: feels much better but having anxiety after droperidol will give ativan. is asking to leave Medications Administered Discontinued Medications Generic Name Dose Route Start Last Admin Trade Name Freq PRN Reason Stop Dose Admin Droperidol 1.25 mg 03/22/23 11:20 03/22/23 11:25 Droperidol 5 Mg/2 Ml Vial IVPUSH 03/22/23 11:21 1.25 mg ONCE ONE Administration Sodium Chloride 1,000 mls @ 999 mls/hr 03/22/23 11:30 03/22/23 11:26 Ns IV 03/22/23 12:30 999 mls/hr .Q1H1M OSVALDO Administration Ketorolac Tromethamine 15 mg 03/22/23 11:20 03/22/23 11:25 Ketorolac Tromethamine 15 Mg/Ml Vial IVPUSH 03/22/23 11:21 15 mg ONCE ONE Administration Medical Decision Making Medical Decision Making MDM Narrative: 32 yo female with PMH of anxiety and migraines who comes in with headache at 3am she was given sumatriptan by PCP but has never had imaging in the past. At this time no fevers, normal neuro exam, no meningeal signs. Given duration of headaches would obtain CT scan for mass - doubt [employer] infection, given intermittent chronicity SAH unlikely. IV supportive medications ordered. Differential Diagnosis Differential Diagnoses: The differential diagnosis associated with the presentation includes tension headache, mass, cluster, migraine Admission/Observation Consideration of admission/observation: Escalation of care including admission/observation considered feels better stable for DC Lab Data [facility] Lab Attestation statement: I reviewed the patient's lab results. 03/22/23 11:17 03/22/23 11:17 Labs: Lab Results 03/22/23 Range/Units 11:17 WBC 11.2 H (4.8-10.8) X10*3/uL RBC 5.06 (4.20-5.50) X10*6/uL Hgb 14.1 (12.0-16.0) g/dl Hct 42.6 (37.0-47.0) % MCV 84.2 (80.0-98.0) fL MCH 27.9 (27.0-33.0) pg MCHC 33.1 (31.0-35.0) g/dl RDW 12.9 (11.0-16.0) % Plt Count 434 H (160-400) X10*3/uL MPV 8.8 L (9.4-12.3) fL Immature Gran % (Auto) 0.4 (0.0-0.4) % Neut % (Auto) 56.8 (45-73) % Lymph % (Auto) 34.9 (20-40) % Hamilton % (Auto) 6.8 (2-11) % Eos % (Auto) 0.8 (0-4) % Baso % (Auto) 0.3 (0-2) % Lymph # (Auto) 3.9 (1.2-4.9) X10*3/uL Hamilton # (Auto) 0.8 (0.1-1.2) X10*3/uL Eos # (Auto) 0.1 (0.0-0.4) X10*3/uL Baso # (Auto) 0.0 (0.0-0.2) X10*3/uL Abs Immat Gran (auto) 0.05 H (0.00-0.03) X10*3/uL Absolute Neuts (auto) 6.3 (2.0-8.3) x10*3/uL Absolute Nucleated RBC 0.000 (0.0-0.012) X10*3/uL Nucleated RBC % (auto) 0.0 (0.0-0.2) /100WBC ESR 66 H (0-20) MM/HR Sodium 137 (135-145) mmol/L Potassium 4.2 (3.3-5.1) mmol/L Chloride 104 (96-108) mmol/L Carbon Dioxide 24 (22-29) mmol/L Anion Gap 13 (12-20) BUN 12 (9-16) mg/dL Creatinine 0.69 (0.5-1.4) mg/dL Estim Creat Clear Calc 150.1 Estimated GFR > 60 Random Glucose 88 (60-115) mg/dL Calcium 9.8 (8.4-10.2) mg/dL Magnesium 2.0 (1.6-2.6) mg/dL C-Reactive Protein 2.33 H (< or = 0.50) mg/dL Independent Interpretation I performed an independent interpretation of an: CT Scan (normal ) Radiology Impression Discussion of test interpretation with radiology: I have reviewed the radiologist's reading. External Record Review External record reviewed: Office record Discharge Plan Discharge Clinical Impression: Migraine Qualifiers: Migraine type: unspecified Status migrainosus presence: without status migrainosus Intractability: not intractable Qualified Code(s): G43.909 - Migraine, unspecified, not intractable, without status migrainosus Patient Disposition: Home, Self-Care Instructions: Migraine Headache (ED) Additional Instructions: you have chronic elevation of inflammatory markers while this is nonspecific your doctor should monitor this. your CT head was normal. please rest and stay with responsible adult today. return for confusion, fevers, weakness, numbness or any other concerns. talk to your doctor about daily preventative medications or neurology consult Prescriptions: No Action albuterol sulfate 90 mcg/actuation HFA aerosol inhaler 1 inh inhalation QID PRN (Reason: shortness of breath or wheezing) Qty: 8.5 0RF
[2023-03-22 11:23] LABS: MANUAL DIFF FLAG NO
[2023-03-22 11:25] LABS: Basophils Percent Auto 0.3 % (0-2); Eosinophils Absolute Auto 0.1 X10*3/uL (0.0-0.4); Eosinophils Percent Auto 0.8 % (0-4); Hematocrit 42.6 % (37.0-47.0); Hemoglobin 14.1 g/dl (12.0-16.0); Imm Gran Abs Auto 0.05 X10*3/uL (0.00-0.03); Imm Gran Pct Auto 0.4 % (0.0-0.4); Lymphocytes Absolute Auto 3.9 X10*3/uL (1.2-4.9); Lymphocytes Percent Auto 34.9 % (20-40); Mean Corpuscular HGB Conc 33.1 g/dl (31.0-35.0); Mean Corpuscular Hemoglobin 27.9 pg (27.0-33.0); Mean Corpuscular Volume 84.2 fL (80.0-98.0); Mean Platelet Volume 8.8 fL (9.4-12.3); Monocytes Absolute Auto 0.8 X10*3/uL (0.1-1.2); Monocytes Percent Auto 6.8 % (2-11); Neutrophils Absolute Auto 6.3 x10*3/uL (2.0-8.3); Neutrophils Percent Auto 56.8 % (45-73); Platelet Count 434 X10*3/uL (160-400); Red Blood Count 5.06 X10*6/uL (4.20-5.50); Red Cell Distribution Width 12.9 % (11.0-16.0); White Blood Count 11.2 X10*3/uL (4.8-10.8)
[2023-03-22] MEDS: droPERidol 5 MG/2 ML VIAL 1.25 MG IVPUSH (11:25)
[2023-03-22] MEDS: Ketorolac Tromethamine 15 MG/ML VIAL IVPUSH (11:25)
[2023-03-22] MEDS: 0.9 % Sodium Chloride 1,000 ML 999 ML IV (11:26)
[2023-03-22 11:48] LABS: Anion Gap 13 (12-20); Blood Urea Nitrogen 12 mg/dL (9-16); C Reactive Protein 2.33 mg/dL (< or = 0.50); Calcium 9.8 mg/dL (8.4-10.2); Carbon Dioxide 24 mmol/L (22-29); Chloride 104 mmol/L (96-108); Creatinine Clr Calc Pharmacy 150.1; Estimated Glomerular Filt Rate > 60; Glucose Random 88 mg/dL (60-115); Potassium 4.2 mmol/L (3.3-5.1); Sodium 137 mmol/L (135-145)
[2023-03-22 12:03] LABS: Erythrocyte Sedimentation Rate 66 MM/HR (0-20)
[2023-03-22] MEDS: LORazepam 2 MG/ML VIAL 1 MG IVPUSH (12:42)
== END 2023-03-22 14:13 | disposition home or self-care (01) ==
PROVIDERS: Physician Assistant Medical; Emergency Provider Emergency Medicine; PCP Internal Medicine
DX: G43.909 Migraine, unspecified, not intractable, without status migrainosus (principal); F41.9 Anxiety disorder, unspecified
CPT/HCPCS: 36415; 70450; 80048; 83735; 85025; 85652; 86140; 96374; 96375; 99283; 99284; J1790; J1885; J2060

== ENCOUNTER → 2024-01-06 12:34 | Outpatient (BNVA) | payer MEDICAID, SELFPAY | PROVIDERS: PCP Internal Medicine; Visit Provider Physician Assistant Surgical ==

== ENCOUNTER 2024-01-30 08:11 | Outpatient (AMB) | payer MEDICAID, SELFPAY ==
--- OUTSIDE RECORDS SUMMARY | 2024-01-30 08:15 | XMS_ITS | Continuity of Care Document ---
Author Organization [facility] Address Unknown Care Team Providers Care Screw Machine Setter Name Role Phone Not on Staff, PCP Primary Care Physician Unavail able [place] [facility] [place](s[place] 04/02/21 - 05/04/21 [facility] Attending Physician: Jose J Sanz MD Referring Physician: Not on Staff, Referring MD Allergies, Adverse Reactions, Alerts Substance Reaction Severity Status penicillin Active Medications Multivitamins By Mouth, Daily, 0 Refills, Maintenance, 09/27/17 5:07:22 EDT Start Date: 09/27/17 Status: Ordered Tylenol 325 mg oral capsule 1 capsule = 325 mg, By Mouth, 3 times a day, 0 Refills, Maintenance, 09/27/17 5:07:44 EDT Start Date: 09/27/17 Status: Ordered Zofran 4 mg oral tablet 1 tablet = 4 mg, By Mouth, 3 times a day, PRN Nausea, Please take as needed for nausea, # 12 tablet, 5 Refills, Maintenance, 03/31/21 15:32:00 EST, [facility]/pharmacy #[id number], Partial fill upon patient request if the prescription is for a schedule II opioid d... Start Date: 03/31/21 Status: Ordered Problem List Condition Effective Dates Status Health Status Inform ant Gall stones(Confirmed) Active Social History Social History Type Response Smoking Status Never smoker entered on: 09/27/17 Sex
--- OUTSIDE RECORDS SUMMARY | 2024-01-30 08:15 | XMS_ITS | Continuity of Care Document ---
Author Organization [facility] Address Unknown Care Team Providers Care Cafeteria Cook Name Role Phone Not on Staff, PCP Primary Care Physician Unavail able [place] [facility] [place] 05/04/21 [facility] Attending Physician: Sni Montes Admitting Physician: Sin Montes Referring Physician: Sin Montes Allergies, Adverse Reactions, Alerts Substance Reaction Severity [...] tablet, 5 Refills, Maintenance, 03/31/21 15:32:00 EST, [facility]/pharmacy #[id number], Partial fill upon patient request if the prescription is for a schedule II opioid d... Start Date: 03/31/21 Status: Ordered Problem List Condition Effective Dates Status Health Status Inform ant Gall stones(Confirmed) Active Social History Social History Type Response Smoking Status Never smoker entered on: 09/27/17 Sex
--- OUTSIDE RECORDS SUMMARY | 2024-01-30 08:15 | XMS_ITS | Continuity of Care Document ---
Author Organization [facility] Address Unknown Care Team Providers Care Geochemical Manager Name Role Phone Not on Staff, PCP Primary Care Physician Unavail able Encounter [facility] [place] Date(s): 04/02/21 - 05/02/21 [facility] Allergies, Adverse Reactions, Alerts Substance Reaction Severity [...] tablet, 5 Refills, Maintenance, 03/31/21 15:32:00 EST, [facility]/pharmacy #[id number], Partial fill upon patient request if the prescription is for a schedule II opioid d... Start Date: 03/31/21 Status: Ordered Problem List Condition Effective Dates Status Health Status Inform ant Gall stones(Confirmed) Active Social History Social History Type Response Smoking Status Never smoker entered on: 09/27/17 Sex
--- OUTSIDE RECORDS SUMMARY | 2024-01-30 08:15 | XMS_ITS | Continuity of Care Document ---
Author Organization [facility] ter Address [address] [place] [address]- Care Team Providers Care Diver'S Tender Name Role Phone Not on Staff, PCP Primary Care Physician Unavail able Encounter [facility] [place] Date(s): 03/30/21 - 03/31/[address] [address]- Encounter Diagnosis Cholelithiases(Final) - 03/31/21 Discharge Disposition: A-D/C Home Attending Physician: Wayne Lehman MD Admitting Physician: Wayne Lehman MD Referring Physician: Not on Staff, Referring MD Allergies, Adverse Reactions, Alerts Substance Reaction Severity Status penicillin Active Medications MorPHINE Inj 4 mg, Injection, IV Push Slowly, Once, Routine, 03/31/21 11:00:00 EST, Stop date 03/31/21 11:00:00 EST Start Date: 03/31/21 Stop Date: 03/31/21 Status: Completed Multivitamins By Mouth, Daily, 0 Refills, Maintenance, [...] tablet, 5 Refills, Maintenance, 03/31/21 15:32:00 EST, [facility]/pharmacy #[id number], Partial fill upon patient request if the prescription is for a schedule II opioid d... Start Date: 03/31/21 Status: Ordered Problem List Condition Effective Dates Status Health Status Inform ant Gall stones(Confirmed) Active Vital Signs Most recent to oldest [Reference Range]: 1 2 3 Height 156 cm (03/31/21 9:08 AM) Weight 107 kg (03/31/21 9:08 AM) Oxygen Saturation [94-100 %] 100 % (03/31/21 3:46 PM) 100 % (03/31/21 12:39 PM) 100 % (03/31/21 8:52 AM) Pulse Rate [55-90 bpm] 71 bpm (03/31/21 3:46 PM) 72 bpm (03/31/21 12:39 PM) 69 bpm (03/31/21 8:52 AM) Blood Pressure [90-138/55-84 mm Hg] 132/84mm Hg (03/31/21 3:46 PM) 124/65mm Hg (03/31/21 12:39 PM) 123/76mm Hg (03/31/21 8:52 AM) Respiratory Rate [16-30 br/min] 18 br/min (03/31/21 3:46 PM) 18 br/min (03/31/21 12:39 PM) 18 br/min (03/31/21 10:09 AM) Temperature [96.8-100.4 DegF] 98.4 DegF (03/31/21 3:46 PM) 98.2 DegF (03/31/21 12:39 PM) 97.9 DegF (03/31/21 8:52 AM) Mode of Delivery (Oxygen) Room air (03/31/21 3:46 PM) Room air (03/31/21 12:39 PM) Room air (03/31/21 8:52 AM) Blood pressure sites Arm, left (03/31/21 3:46 PM) Arm, left (03/31/21 12:39 PM) Arm, left (03/31/21 8:52 AM) Temperature Route Oral (03/31/21 3:46 PM) Oral (03/31/21 12:39 PM) Oral (03/31/21 8:52 AM) Dry Weight 107 kg (03/31/21 9:08 AM) Social History Social History Type Response Smoking Status Never smoker entered on: 09/27/17 Sex
--- NOTE | 2024-01-30 10:03 | MHC.OFFVISWM ---
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 Allergies penicillin V Allergy (Unknown, Verified 01/30/24 10:04) Unknown Penicillins [PENICILLINS] Allergy (Unknown, Verified 01/30/24 10:04) UNKNOWN droperidol Adverse Reaction (Mild, Uncoded 01/30/24 10:04) Anxiety Medication List - Last Reconciled 01/30/24 by Aurelio Khalil MD etonogestrel (Nexplanon) subdermal melatonin 5 mg PO BEDTIME naproxen 250 mg PO BID PRN sumatriptan succinate mg PO DIRECTED HPI 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: Details: Start time: 9.58am, End time: 10.28am ?I spent 25 minutes speaking with the patient on the phone plus an additional 5 minutes reviewing and updating records for a total of 30 minutes HPI Comments Details: Previous weight loss efforts: Herbalife, Shakes, Teas Wakes up: 6.30am, Sleeps: 11pm Breakfast: 9.30am (eggs, cheese and sausage, pancakes) Lunch: 1-2pm (sandwich or breakfast bowl) Dinner: 7-8pm (chicken, rice, beans or take-out) Snacks: 12pm (fruits, yogurt, ice cream, salad), 4pm (oatmeal or granola bar), after dinner (more food) Exercise: none Fluids: Coffee: 1 cup/day (creamer and almond milk), cold ice (3 cups/day plain), soda: none, juice: none, ETOH: none PFSH Medical History (Updated 01/30/24 @ 10:09 by Aurelio Khalil MD) Knee pain Insomnia Morbid obesity Anxiety and depression No known health problems Surgical History (Updated 01/06/24 @ 13:27 by Sofía Angel CMA) No pertinent past surgical history Family History (Updated 01/06/24 @ 13:27 by Sofía Angel CMA) Family/Other No problems noted. Social History (Updated 01/06/24 @ 13:28 by Sofía Angel CMA) Alcohol intake: current Alcohol intake frequency: holidays/special occasions only Alcohol type: wine Patient Tobacco Use Status: Never used Tobacco Telehealth Telehealth Telehealth Platform: Telephone Location of provider rendering services: practice address Location of patient: address on file Patient Identification confirmed using: Name, : Yes Telehealth method: voice only Patient verbally consented to treatment: Yes Patient verbally consented to billing insurance company: Yes Patient informed of any privacy concerns related to visit: Yes Minutes spent on Phone/Video with Pt.: 30 Assessment & Plan Assessment & Plan (1) Morbid obesity: Code(s): E66.01 - Morbid (severe) obesity due to excess calories Category: Medical Plan: 1.? Plan for lap sleeve gastrectomy. If diaphragmatic or ventral hernias are present at time of surgery, these will be repaired laparoscopically as well. Risks and complications include possible conversion to an open procedure, anastomotic leak, bleeding requiring transfusion, small bowel obstruction, , DVT and pulmonary embolism, cardiac, or pulmonary complications, as retirement complications such as anastomotic ulcer, insufficient weight loss and vitamin deficiencies. I emphasized the importance of close follow-up, adherence to instructions and good communication. 2. You will receive a link of our software flo to generate an individualized nutritional and exercise plan specific for you. Please send me a screenshot of the plans you will generate Meal to include lean meat (beef, fish, pork, turkey, chicken), or latvian yogurt, or egg whites, or beans with a salad with olive oil and fruits (berries, pears, apples, kiwi). Avoid salt, breads, potatoes, rice, pasta, desserts. ?3. If you choose shakes, each shake would be drunk slowly, like coffee in a period of 2 hours. ?4. If you choose bars, cut each bar in 4 pieces and eat each piece in 30min ?to make each bar last 2 hours. ?5. I emphasized the importance of measuring accurately the food portion and measure it when serving the food in plate ?6. The meal portions include a specific number of forks of meat and salad. You always eat the meat portion but you can replace up to half of salad/vegetables portion with rice, potatoes or pasta, or a fruit ?if you like. The less you do it the better weight loss will be. ?7. One full-size fork is what it can be scooped on the fork without falling aside and not what can be bit with the fork. Use regular forks like those you find in a typical restaurant. ?8.? Please send me weight measurements as soon as possible and then once a week. Always include your diet and exercise plan. 9. The best choice would be to purchase a stationary bike, elliptical or treadmill at home that can track calories. Let me know if you do so I can give you an exercise plan. ?10.?It is important of avoiding and for at least 18 months postoperatively and has been discussed at the infosession. ?11. Goal is to lose at least 1.5-2lbs per week ?12. Goal to lose 10% of your weight before surgery, which is about 27lbs. Ultimate weight goal: 244lbs before surgery 13. Please follow the diet plan exactly without any change. If you don't like something about the plan or you feel hungry you need to communicate with me so I can help you revise the plan. You should not change the plan yourself. 14. To be scheduled for EGD to assess the stomach's anatomy. The possibility of biopsies was discussed. Patient needs to avoid use of NSAIDs and aspirin for 1 week prior to EGD. Risks of perforation and bleeding was discussed with the patient. This will be an outpatient procedure with IV sedation. Orders: Orders Hemoglobin A1c Today E66.01 - Morbid (severe) obesity due to excess calories Complete Blood Count Auto Diff Today E66.01 - Morbid (severe) obesity due to excess calories Lipid Panel Today E66.01 - Morbid (severe) obesity due to excess calories Zinc Today E66.01 - Morbid (severe) obesity due to excess calories C Reactive Protein Today E66.01 - Morbid (severe) obesity due to excess calories Vitamin B1 Today E66.01 - Morbid (severe) obesity due to excess calories Vitamin A Today E66.01 - Morbid (severe) obesity due to excess calories TSH reflex Free T4 Today E66.01 - Morbid (severe) obesity due to excess calories Ferritin Today E66.01 - Morbid (severe) obesity due to excess calories Vitamin D 25-OH Total Today E66.01 - Morbid (severe) obesity due to excess calories ECG 12 lead EKG Today E66.01 - Morbid (severe) obesity due to excess calories FL upper GI w air Today E66.01 - Morbid (severe) obesity due to excess calories Insulin Today E66.01 - Morbid (severe) obesity due to excess calories H Pylori Breath Test Today E66.01 - Morbid (severe) obesity due to excess calories IRON PROFILE Today E66.01 - Morbid (severe) obesity due to excess calories Comprehensive Met. Panel Today E66.01 - Morbid (severe) obesity due to excess calories Vitamin B12 and Folate Today E66.01 - Morbid (severe) obesity due to excess calories US abdomen comp w elastography Today E66.01 - Morbid (severe) obesity due to excess calories XR chest 2V Today E66.01 - Morbid (severe) obesity due to excess calories Referrals Behavioral Health Referral E66.01 - Morbid (severe) obesity due to excess calories Nutrition/Dietitian Referral E66.01 - Morbid (severe) obesity due to excess calories
[2024-01-30 10:15] VITALS: BMI 48.8
== END 2024-01-30 10:30 | disposition home or self-care (01) ==
LOC: HO.HBS 08:11
PROVIDERS: PCP Internal Medicine; Referring Provider Internal Medicine; Visit Provider Surgery
DX: E66.813 Obesity, class 3 (principal); Z68.42 Body mass index [BMI] 45.0-49.9, adult
CPT/HCPCS: 99204

== ENCOUNTER → 2024-01-30 08:11 | Outpatient (BNVA) | payer MEDICAID, SELFPAY | PROVIDERS: PCP Internal Medicine; Visit Provider Surgery ==

== ENCOUNTER → 2024-06-04 08:06 | Outpatient (BNVA) | payer MEDICAID, SELFPAY | PROVIDERS: PCP Internal Medicine; Visit Provider Surgery ==

== ENCOUNTER → 2024-06-04 08:06 | Outpatient (AMB) | payer MEDICAID, SELFPAY ==
--- OUTSIDE RECORDS SUMMARY | 2024-06-04 08:12 | XMS_ITS | Encounter Summary ---
Author Organization [employer] Address [address] [facility] [address] [place] [address] Care Team Providers Care Public Policy Professor Name Role Phone Izabella Milton MD Primary Care Provide r Reason for Visit * Reason Onset Date Comments Call Back Request 06/03/2023 Encounter Details Date Type Department Care Team ([facility] st Contact Info) Description 06/03/2023 Telephone [facility] [address] [place], [place] [phone] Izabella Milton MD [address] [place], [place] [phone] Call Back Request Social History Tobacco Use Types Packs/Day Years Used Date Smoking Tobacco: Never Smokeless Tobacco: Never Alcohol Use Standard Drinks/Week Comments Not Currently 0 (1 standard drink = 0.6 oz pur e alcohol) Oca Depression Answer Date Recorded Patient Health Questionnaire-9 Score 18 09/09/2022 Housing Stability Answer Date Recorded What is your housing situation today? I have yajaira hodge 03/03/[address] you li ve. Do you have problems with any of the following? None of the above 03/03/2023 Food Insecurity Answer Date Recorded Within the past 12 months, y ou worried that your food would run out before you got money to buy more: Never True 03/03/2023 Within the past 12 months,th e food you bought just didn't last and you didn't have enough money to get more: Never True 09/2022 Transportation Answer Date Recorded In the past 12 months, has l ack of transportation kept you from medical appts, meetings, work or from getting things needed for daily living? No 03/03/2023 Utilities Answer Date Recorded In the past 12 months, has t he electric, gas, oil or water company threatened to shut off services in your home? No 03/03/2023 Depression Answer Date Recorded Patient Health Questionnaire-2 Score 6 09/09/2022 Comments Unknown Sex and Gender Information Value Date Recorded Sex Assigned at Female 02/25/2022 10:17 AM EDT Legal Sex Female 10:17 AM EDT Gender Identity Female 02/25/2022 10:17 AM EDT Sexual Orientation Straight 02/25/2022 10 :17 AM EDT documented as of this encounter Miscellaneous Notes * Telephone Encounter - Richie Armendariz - 06/03/2023 2:56 PM EST Tc from pt was evaluated a [facility] [place] regarding long lasting headaches (pt unsure of exact date). Pt stated [facility] advised her to contact pcp If she were to have another long lasting headache to see what they can prescribe. Please contact pt at [phone]. documented in this encounter Plan of Treatment Not on file documented as of this encounter Visit Diagnoses Not on filedocumented in this encounter Additional Health Concerns Assessment Noted Time PHQ-9 Depression Total Score: 18 023 8:13 AM EDT documented as of this encounter Care Teams Public Policy Professor Relationship Specialty Start Date End Date Izabella Milton MD [address] [place] [phone] PCP - General Family Medicine 01/07/18 Karla Ayon Business Transformation AnalystVault Mechanic 08/21/23 documented as of this encounter
--- OUTSIDE RECORDS SUMMARY | 2024-06-04 08:12 | XMS_ITS | Encounter Summary ---
Author Organization [employer] Address [address] [facility] [address] [place] [address] Care Team Providers Care Lard Maker Name Role Phone Izabella Milton MD Primary Care Provide r Reason for Visit * Reason Onset Date Comments Med Refill 12/24/2023 Encounter Details Date Type Department Care Team ([facility] st Contact Info) Description 12/24/2023 Refill [facility] [address] [place], [place] [phone] Izabella Milton MD [address] [place], [place] [phone] Insomnia, unspecified type Social History Tobacco Use Types Packs/Day Years [...] AM EDT documented as of this encounter Plan of Treatment Not on file documented as of this encounter Visit Diagnoses Diagnosis Insomnia, unspecified type documented in this encounter Additional Health Concerns Assessment Noted Time PHQ-9 Depression Total Score: 18 023 8:13 AM EDT documented as of this encounter Care Teams Lard Maker Relationship Specialty Start Date End Date Izabella Milton MD [address] [place] [phone] PCP - General Family Medicine 01/07/18 Karla Ayon Cheese ProcessorDirector Of Bands 08/21/23 documented as of this encounter
--- OUTSIDE RECORDS SUMMARY | 2024-06-04 08:13 | XMS_ITS | Clinical Summary ---
Author Organization [employer] Address [address] [facility] [address] [place] [address] Care Team Providers Care Automotive Sales Manager Name Role Phone Izabella Milton MD Primary Care Provide r Allergies Active Allergy Reactions Criticality Noted Date Comments Penicillin G 05/02/2022 Penicillin V Other reaction(s): unspecified Medications * This document contains information received from the source organization and may not represent a complete record from that organization. acetaminophen (Tylenol) 500 MG tablet Take 1 tablet by mouth every 4 (four) hours. 2 Active ProAir HFA 108 (90 Base) MCG/ACT inhaler INHALE 1 PUFF 4 TIMES A DAY NEEDED FOR WHEEZE OR FOR SHORTNESS OF BREATH 2 Active Flowflex COVID-19 Ag Home Test kit TEST DIRECTED 2 Active cetirizine (ZyrTEC) 10 MG tabletIndication s:Seasonal allergies Take 1 tablet (10 mg) by mouth in the morning. 30 tablet 2 3 Active mirtazapine (Remeron) 15 MG tabletIndication s:Recurrent moderate major depressive disorder with anxiety (CMS/HCC) TAKE 1 TABLET BY MOUTH DAILY AT BEDTIME 30 tablet 3 Active azithromycin (Zithromax Z-Reza) 250 MG tablet Take 2 tabs day 1 and then 1 tab daily to finish 6 tablet 4 Active pseudoephedrine (Sudafed) 30 MG tablet Take 1 tablet (30 mg) by mouth every 4 (four) hours if needed for congestion for up to 10 days. 30 tablet 4 Active venlafaxine XR (Effexor XR) 37.5 MG 24 hr capsuleIndicatio ns:Recurrent moderate major depressive disorder with anxiety (CMS/HCC) TAKE 1 CAPSULE BY MOUTH EVERY MORNING 30 capsule 3 4 Active SUMAtriptan (Imitrex) 25 MG tablet TAKE 1 TABLET BY MOUTH AT ONSET OF MIGRAINE. MAY REPEAT ONCE AFTER 2 HOURS IF NEEDED 12 tablet 2 4 Active melatonin 5 MG tabletIndication s:Insomnia, unspecified type TAKE 1 TABLET BY MOUTH AT BEDTIME 30 tablet 3 4 Active Active Problems Problem Noted Date Diagnosed Date Seasonal allergies 09/17/2022 Chronic pain of left knee 09/17/2022 Other insomnia 09/17/2022 Assessment & Plan (09/17/2022 10:01 AM EDT): Patient job counselor about sleep hygiene I will star her on melatonin 5mg at bed time RTC 2-3 weeks televisit Hair loss 09/05/2022 Assessment & Plan (09/05/2022 1:24 PM EDT): It could be related to depression Pt reports family history of SLE so I will order labs but at this time there is no other diagnositc suspicion for SLE. 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 start Effexor 37.5 to 75 mg daily and fu with me or PCP in 4 weeks. Pt is being evaluated today by team for counseling. discussed with patient about keeping restraining order in check. Abnormal urinalysis 09/05/2022 Cholelithiasis 05/02/2022 Encounters Date Type Department Care Team Description 04/05/2024 Telephone [facility] [address] [place] [phone] Izabella Milton MD Referral 03/11/2024 Telephone [facility] [address] [place] [address] Izabella Milton MD Nurse Triage from Last 3 Months Immunizations Name Administration Dates Next Due DTaP 01/26/1995, 5,01/26/1993,10/27 HPV, Quadrivalent 10/23/2010,12/06/2008,07/24/19 08 Hep B, Adolescent or Pediatric 11/19/1994,1993,10/03/1993 Hib ([facility]) 05/07/1994,02/01/1993,11/17/1992 IPV 11/19/1994, 5,01/26/1993,10/27 Influenza injectable quadriv alent IIV4 with preservative 03/19/2016 MMR 10/03/1993,09/06/1991 Meningococcal MCV4P [id number] 07/24/2007 Moderna Covid-19 Vaccine 12+ 12/26/2020 TD (adult), 2 Lf tetanus tox oid, preservative free, adsorbed 12/29/2002 Tdap 10/08/2017 Varicella 12/06/2008,12/29/2002 Social History Tobacco Use Types Packs/Day Years Used Date Smoking Tobacco: Never Smokeless Tobacco: Never Tobacco Cessation:Counseling Given: Not Answered Alcohol Use Standard Drinks/Week Comments Not Currently [...] Orientation Straight 02/25/2022 10 :17 AM EDT Last Filed Vital Signs Vital Sign Reading Time Taken Comments Blood Pressure 132/77 08/08/2023 8:57 AM EDT Pulse 98 08/08/2023 8:57 AM EDT Temperature 36.9 ??C (98.4 ??F) 08/08/2023 8:57 AM ED T Respiratory Rate 17 08/08/2023 8:57 AM EDT Oxygen Saturation 99% 08/08/2023 8:57 AM EDT Inhaled Oxygen Concentration - - Weight 121 kg (266 lb 6.4 oz) 08/08/2023 8:57 AM EDT Height 154.9 cm (5' 1 ) 07/18/2023 11:20 AM EDT Body Mass Index 50.34 07/18/2023 11:20 AM EDT Plan of Treatment Health Maintenance Due Date Last Done Comments HIV Screening 1990 Alcohol/Substance Use Screening 2002 Family Planning (PISQ) 2005 Hepatitis C Screening 2008 Pap Smear 12/03/2011 Cervical Cancer Screening 2020 HPV/Cotest 2020 Depression Monitoring (PHQ-9) 03/12/2023 09/09/2022, 09/09/2022 SDOH Screening 09/06/2023 09/05/2022 Depression Screening 09/10/2023 09/09/2022, 09/10/19 23 COVID-19 Vaccine ( season) 2023 06/07/2021, 12/26/2020, 11/28/2020 Influenza Vaccine (#1) 2023 03/19/2016 Tobacco Screening 08/07/2024 08/08/2023 DTaP/Tdap/Td Vaccines (6 - Td or Tdap) 10/09/2027 10/08/2017, 12/29/2002, 01/26/1995, Additional history exists Zoster Vaccines (1 of 2) 2040 RSV Patients and Patients Aged 60 years or older (1 - 1-dose 75+ series) 2065 HIB Vaccines Completed 05/07/1994, 10/1992, 11/17/1992 Hepatitis B Vaccines Completed 11/19/1994, 01/04/1994, 10/03/1993 IPV Vaccines Completed 11/19/1994, 04/28, 01/26/1993, Additional history exists Meningococcal Vaccine Completed 07/24/2007 HPV Vaccines Completed 10/23/2010, 11/26, 07/24/2007 Hepatitis A Vaccines Aged Out No long er eligible based on patient's age to complete this topic Pneumococcal Vaccine: Pediatrics (0 to 5 Years) and At-Risk Patients (6 to 49) Years) Aged Out No longer eligible based on patient's age to complete this topic RSV under 20 months Aged Out No longe r eligible based on patient's age to complete this topic Rotavirus Vaccines Aged Out No longer eligible based on patient's age to complete this topic Insurance [facility] C3 Care Teams Automotive Sales Manager Relationship Specialty Start Date End Date Izabella Milton MD [address] [place] [phone] PCP - General Family Medicine 01/07/18 Karla Ayon Belt WeaverBuilding Specialist 08/21/23
--- OUTSIDE RECORDS SUMMARY | 2024-06-04 08:13 | XMS_ITS | Encounter Summary ---
Author Organization [employer] Address [address] [facility] 7t [place] [address] Care Team Providers Care Flight Operations Engineer Name Role Phone Izabella Milton MD Primary Care Provide r Reason for Visit * Reason Onset Date Comments Nurse Triage 10/23/2022 Encounter Details Date Type Department Care Team ([facility] st Contact Info) Description 10/23/2022 Telephone [facility] MEDICINE [address], [place] [phone] Izabella Milton MD [address], [place] [phone] Nurse Triage Social History Tobacco Use Types Packs/Day Years [...] encounter Miscellaneous Notes * Telephone Encounter - Amanda So RN - 10/23/2022 10:30 AM EDT Triage call Pt reports having migraine headaches regularly for last 2 weeks. Migraine may be light after meds taken and will go away for a bit then in morning will start again. Pt has been having some sore throat, body aches, losing sleep at times. Neg for fever or earache but, has had some nasal co ngestion with clear to greenish drainage. Advised Pt to come to [facility] to be seen today by provider and Pt agreed. Insurance is verified as active Protocol Used: Headache (Adult) Protocol-Based Disposition: See in Office or Video Visit Today Video visit not offered Positive Triage Question: * Patient wants to be seen * All higher-acuity triage questions were negative Care Advice Discussed: * Reassurance and Education - Migraine Headache * Reassurance and Education - Muscle Tension Headache * Pain Medicines * Migraine Medication * Rest * Apply Cold to the Area * Stretching * Reasons To Call Back - Headache lasts longer than 24 hours - You become worse * Telephone Encounter - Dilip Fofana - 10/23/2022 9:54 AM EDT Symptom: Headache Outcome: Schedule an urgent appointment (within 4 hours) or talk to a nurse or provider soon Reason: Getting worse, cough , sore throat The caller accepted this outcome Please contact at [phone] documented in this encounter Plan of Treatment Not on file documented as of this encounter Visit Diagnoses Not on filedocumented in this encounter Additional Health Concerns Assessment Noted Time PHQ-9 Depression Total Score: 18 023 8:13 AM EDT documented as of this encounter Care Teams Flight Operations Engineer Relationship Specialty Start Date End Date Izabella Milton MD [address] [place] [address] PCP - General Family Medicine 01/07/18 Karla Ayon Bath Design Sales ConsultantTrade Marker 08/21/23 documented as of this encounter
--- OUTSIDE RECORDS SUMMARY | 2024-06-04 08:13 | XMS_ITS | Clinical Summary ---
Author Organization [facility] ity Address [address] [place] [address] Care Team Providers Care Bioinformatician Name Role Phone Unavailable Primary Care Provider Unavailabl e Social History Tobacco Use Types Packs/Day Years Used Date Smoking Tobacco: Never Assessed Sex and Gender Information Value Date Recorded Sex Assigned at Female 05/03/2022 1:01 PM EST Gender Identity Female 05/03/2022 1:01 PM EST Sexual Orientation Straight 05/03/2022 1: 01 PM EST Plan of Treatment Health Maintenance Due Date Last Done Comments DTaP,Tdap,and Td Vaccines (1 - Tdap) 2009 Hepatitis B Vaccines (1 of 3 - 19+ 3-dose series) 2009 Cervical Cancer Screening: P ap Smear 12/03/2011 COVID-19 Vaccine (2023-2 5 season) 2023 Influenza Vaccine (#1) 2023 HIB Vaccines Aged Out No longer eligi ble based on patient's age to complete this topic HPV Vaccines Aged Out No longer eligi ble based on patient's age to complete this topic Hepatitis A Vaccines Aged Out No long er eligible based on patient's age to complete this topic IPV Vaccines Aged Out No longer eligi ble based on patient's age to complete this topic MMR Vaccines Aged Out No longer eligi ble based on patient's age to complete this topic Meningococcal ACWY Vaccine Aged Out N o longer eligible based on patient's age to complete this topic Pneumococcal Vaccine: Pediat rics (0 to 5 Years) and At-Risk Patients (6 to 64 Years) Aged Out No longer eligible b ased on patient's age to complete this topic RSV Immunization Patients Un giovnaa 20 months Aged Out No longer eligible b ased on patient's age to complete this topic Varicella Vaccines Aged Out No longer eligible based on patient's age to complete this topic
--- OUTSIDE RECORDS SUMMARY | 2024-06-04 08:13 | XMS_ITS | Encounter Summary ---
Author Organization [employer] Address [address] [facility] 7t [place] [address] Care Team Providers Care Public Policy Analyst Name Role Phone Izabella Milton MD Primary Care Provide r Reason for Visit * Reason Onset Date Comments PT1 03/24/2023 Encounter Details Date Type Department Care Team ([facility] st Contact Info) Description 03/24/2023 Telephone [facility] MEDICINE [address] [place], [place] [phone] Izabella Milton MD [address] [place], [place] [phone] PT1 Social History Tobacco Use Types Packs/Day Years [...] encounter Miscellaneous Notes * Telephone Encounter - Muna Christina - 03/24/2023 2:52 PM EST [facility] for the pt. Date: n/a Time: n/a Visits: n/a Address: [address] [place] [id number] Facility: [facility] Primary Care Wheel Chair: n/a Data Designer Needed: n/a documented in this encounter Plan of Treatment Not on file documented as of this encounter Visit Diagnoses Not on filedocumented in this encounter Additional Health Concerns Assessment Noted Time PHQ-9 Depression Total Score: 18 023 8:13 AM EDT documented as of this encounter Care Teams Public Policy Analyst Relationship Specialty Start Date End Date Izabella Milton MD [address] [place] [id number] PCP - General Family Medicine 01/07/18 Karla Ayon Senior Java Web Application DeveloperBulk Tank Car Unloader 08/21/23 documented as of this encounter
--- OUTSIDE RECORDS SUMMARY | 2024-06-04 08:13 | XMS_ITS | Encounter Summary ---
Author Organization [employer] Address [address] [facility] 7t [place] [address] Care Team Providers Care Manager News Name Role Phone Izabella Milton MD Primary Care Provide r Encounter Details Date Type Department Care Team ([facility] st Contact Info) Description 09/13/2022 Orders Only [facility] MEDICINE [address] [place] [address] Izabella Milton MD [address] [place] [address] Social History Tobacco Use Types Packs/Day Years Used Date Smoking Tobacco: Never Smokeless Tobacco: Never Alcohol Use Standard Drinks/Week Comments Not Currently 0 (1 standard drink = 0.6 oz pur e alcohol) Oca Depression Answer Date Recorded Patient Health Questionnaire-9 Score 18 09/09/2022 Depression Answer Date Recorded Patient Health Questionnaire-2 Score 6 09/09/2022 Comments Unknown Sex and Gender Information Value Date Recorded Sex Assigned at Female 02/25/2022 10:17 AM EDT Legal Sex Female 10:17 AM EDT Gender Identity Female 02/25/2022 10:17 AM EDT Sexual Orientation Straight 02/25/2022 10 :17 AM EDT COVID-19 Exposure Response Date Recorded In the last 10 days, have yo u been in contact with someone who was confirmed or suspected to have Coronavirus/COVID-19? No / Unsure 09/05/2022 12:07 PM EDT documented as of this encounter Plan of Treatment Not on file documented as of this encounter Visit Diagnoses Not on filedocumented in this encounter Additional Health Concerns Assessment Noted Time PHQ-9 Depression Total Score: 18 023 8:13 AM EDT documented as of this encounter Care Teams Manager News Relationship Specialty Start Date End Date Izabella Milton MD [address] [place] [id number] PCP - General Family Medicine 01/07/18 Karla Ayon Electronic Data Processing AuditorTandem Mill Sticker 08/21/23 documented as of this encounter
== END | disposition home or self-care (01) ==
PROVIDERS: PCP Internal Medicine; Visit Provider Surgery
CPT/HCPCS: 99214

== ENCOUNTER 2024-07-05 11:09 | Outpatient (AMB) | payer OTHER, SELFPAY ==
--- NOTE | 2024-07-05 11:05 | MHC.WMTHER ---
Intake Intake Visit Reasons: TV BH Intake Allergies penicillin V Allergy (Unknown, Verified 06/04/24 10:35) Unknown Penicillins [PENICILLINS] Allergy (Unknown, Verified 06/04/24 10:35) UNKNOWN droperidol Adverse Reaction (Mild, Uncoded 06/04/24 10:35) Anxiety [facility] Medical History (Updated 07/05/24 @ 14:20 by Marielos Ortez [facility]) Knee pain Insomnia Morbid obesity Anxiety and depression No known health problems Surgical History (Updated 01/06/24 @ 13:27 by Sofía Angel CMA) No pertinent past surgical history Family History (Updated 01/06/24 @ 13:27 by Sofía Angel CMA) Family/Other No problems noted. Social History (Updated 01/06/24 @ 13:28 by Sofía Angel CMA) Alcohol intake: current Alcohol intake frequency: holidays/special occasions only Alcohol type: wine Patient Tobacco Use Status: Never used Tobacco Behavioral Health Assessment Weight Management Therapy Therapy Notes Details PT is a 33 years old Female, who presents for a visit to complete BH assessment as part of surgical weight loss program. Presenting Concerns Referral Source WMP-Provider, Reason for referral Completion of behavioral health assessment as part of process for weight-loss surgery. Precipitating Event Obesity. Living Situation Current Living Situation Relative's/Guardian's Sharad and Rent Comments PT lives at her grandmother's home. In the home lives her grandmother who is 81 y/o, her father and the patient with her 2 children, the 3 of them share a bedroom. Social History Family history and relationship PT is a single mother of 2 girls. They are 12, and 6. PT was raised by her paternal grandmother since she was 1 year old as her parents had PRYOR and legal issues. PT has 13 siblings total from her mother's side, they all were raised separately, she was raised with her youngest sister who was also under her grandmother's custody. Her father currently lives in the household, her mother a couple of years ago, but they were not close or in communication. Parental/Familial global vp creative + content marketing obligations 2 children, She has shared custody for oldest daughter, however he's in fci now. For her youngest she has full custody. Developmental history and status Denies any Hx of learning disabilities, however, she had struggles and repeated years. Currently WNL. Social support Sister. Best Friend. Community support None. Muslim/Spirituality Grew up attending mandaen adventism. Recently started attending a Religion adventism. Cultural/Ethnic information . Family is [place]. PT was born in [place], raised in [place] until she was 6. Moved couple times until they moved to [place] in 2003 Legal Involvement and History Current or historical involvement with the legal system? None. Education Highest grade completed did 12th grade but didn't graduate as she struggled in school. [employer] in 2017. Currently enrolled in educational program? No Interested in further educational program? Yes Educational Interests/Skills Interested in going to school for criminal justice. Would like to work in something related to families and children, like advocating. 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 ) Wants help to find employment? No (But would like to find another job and not longer be her grandmother's DEPUTY SHERIFF/INVESTIGATOR. ) Meaningful activities Used to draw, do outdoor activities. Financial Situation Describe current financial situation Comfortable and Occasional struggle Financial assistance? Food [place] Service Service? No Mental Health and Addiction Treatment Current/Past substance abuse? No Comments Alcohol: hasn't drink since , however she noticed she was drinking every other day before. Cigarettes/Tobacco: currently Vaping daily, multiple times. started in April. it's a hooka pen with nicotine. Cannabis/Edibles: None at this time. Used in the past around 2012. Current/Past addictive behavior concerns? No Psychiatric history PT reports she has been in counseling before. In 2022, she checked herself into a crisis as she was not sleeping, crying and having panic-like Sx. PT reports she has a lot of stress due to family and caregiver responsibilities with lack of support. Trauma/Abuse History History of trauma? Yes Questionnaires PHQ-9 Over the last 2 weeks, how often have you been bothered by any of the following problems? 1. Little interest or pleasure in doing things: several days 2. Feeling down, depressed, or hopeless: nearly every day 3. Trouble falling or staying asleep, or sleeping too much: more than half the days 4. Feeling tired or having little energy: nearly every day 5. Poor appetite or overeating: nearly every day 6. Feeling bad about yourself - or that you are a failure or have let yourself or your family down: nearly every day 7. Trouble concentrating on things, such as reading the newspaper or watching television: several days 8. Moving or speaking so slowly that other people could have noticed. Or the opposite - being so fidgety or restless that you have been moving around a lot more than usual: not at all 9. Thoughts that you would be better off or of hurting yourself in some way: not at all Total score: 16 Depression Screening Interpretation: Positive (From new Pt pack done in january/2024. New one will be administered before finishing assessment. ) Depression Screening Done: No Source: Developed by Drs. Bill Bee, Blanca Morrison, Dimitrios Quinonez and colleagues, with an educational monique from [employer]. Binge Eating Scale Group 1 A. I don't feel self-conscious about my wt. or body size when I'm with others. B. I feel concerned about how I look to others, but it normally does not make me fell disappointed with myself C. I do get self-conscious about my appearance and wt. which makes me feel disappointed in myself. D. I feel very self-conscious about my wt. and frequently I feel intense shame and disgust for myself. I try to avoid social contacts because of my self-consciousness. Response Group 1: D Group 2 A. I don't have any difficulty eating slowly in the proper manner. B. Although I seem to gobble down foods, I don't end up feeling stuffed because of eating to much. C. At times, I tend to eat quickly and then, I feel uncomfortably full afterwards. D. I have the habit of bolting down my food, without really chewing it. When this happens I usually feel uncomfortably stuffed because I've eaten to much. Response Group 2: D Group 3 A. I feel capable to control my eating urges when I want to. B. I feel like I have failed to control my eating more than the average person. C. I feel utterly helpless when it comes to feeling in control of my eating urges. D. Because I feel so helpless about controlling my eating I have become very desperate about trying to get control. Response Group 3: D Group 4 A. I don't have the habit of eating when I'm bored. B. I sometimes eat when I'm bored, but often I'm able to get busy and get my mind off food. C. I have a regular habit of eating when I'm bored, but occasionally, I can use some other activity to get my mind off eating. D. I have a strong habit of eating when I'm bored. Nothing seems to help me breath the habit. Response Group 4: B Group 5 A. I'm usually physically hungry when I eat something. B. Occasionally, I eat something on impulse even though I really am not hungry. C. I have the regular habit of eating foods, that I might not really enjoy, to satisfy a hungry feeling even though physically, I don't need the food. D. Although I'm not physically hungry, I get a hungry feeling in my mouth that only seems to be satisfied when I eat a food, like sandwich, that fills my mouth. Sometimes, when I eat the food to satisfy my mouth hunger, I then spit the food out so I won't gain weight. Response Group 5: B Group 6 A. I don't feel any guilt or self-hate after I overeat. B. After I overeat, occasionally I feel guilt or self-hate. C. Almost all the time I experience strong guilt or self-hate after I overeat. Response Group 6: C Group 7 A. I don't lose total control of my eating when dieting even after periods when I overeat. B. Sometimes when I eat a forbidden food on a diet, I feel like I blew it and eat even more. C. Frequently, I have the habit of saying to myself, I've blown it now, why not go all the way, when I overeat on a diet. When that happens I eat more. D. I have a regular habit of starting a strict diets for myself but I break the diets by going on an eating binge. My life seems to be either a feast or famine. Response Group 7: D Group 8 A. I rarely eat so much food that I feel uncomfortably stuffed afterwards. B. Usually about once a month, I each such a quantity of food, I end up feeling very stuffed. C. I have regular periods during the month when I eat large amounts of food, either at mealtime or at snacks. D. I eat so much food that I regularly feel quite uncomfortable after eating and sometimes a bit nauseous. Response Group 8: C Group 9 A. My level of calorie intake does not go up very high or go down very low on a regular basis. B. Sometimes after I overeat, I will try to reduce my caloric intake to almost nothing to compensate for the excess calories I've eaten. C. I have a regular habit of overeating during the night. It seems that my routine is not to be hungry in the morning but overeat in the evening. D. In my adult years, I have had week-long periods where I practically starve myself. This follows periods when I overeat. It seems I live a life of either feast or famine. Response Group 9: C Group 10 A. I usually am able to stop eating when I want to. I know when enough is enough. B. Every so often, I experience a compulsion to eat which I can't seem to control. C. Frequently, I experience strong urges to eat which I seem unable to control, but at other times I can control my eating urges. D. I feel incapable of controlling urges to eat. I have a fear of not being able to stop eating voluntarily. Response Group 10: A Group 11 A. I don't have any problem stopping eating when I feel full. B. I usually can stop eating when I feel full but occasionally overeat leaving me feeling uncomfortably stuffed. C. I have a problem stopping eating once I start and usually I feel uncomfortably stuffed after I eat a meal. D. Because I have a problem not being able to stop eating when I want, I sometimes have to induce vomiting to relieve my stuffed feeling. Response Group 11: C Group 12 A. I seem to eat just as much when I'm with others, Family social gatherings as when I'm by myself. B. Sometimes, when I'm with other persons, I don't eat as much as I want to eat because I'm self-conscious about my eating. C. Frequently, I eat only a small amount of food when others are present, because I'm very embarrassed about my eating. D. I feel so ashamed about overeating that I pick times to overeat when I know no one will see me. I feel like a closet eater. Response Group 12: D Group 13 A. I eat three meals a day with only an occasional between meal snack. B. I eat 3 meals a day, but I also normally snack between meals. C. When I am snacking heavily, I get in the habit of skipping regular meals. D. There are regular periods when I seem to be continually eating, with no planned meals. Response Group 13: B Group 14 A. I don't think much about trying to control unwanted eating urges. B. At least some of the time, I feel my thoughts are pre-occupied with trying to control my eating urges. C. I feel that frequently I spend much time thinking about how much I ate or about trying not to eat anymore. D. It seems to me that most of my waking hours are pre-occupied by thoughts about eating or not eating. I feel like I'm constantly struggling not to eat. Response Group 14: B Group 15 A. I don't think about food a great deal. B. I have strong craving for food but they last only for brief periods of time. C. I have days when I can't seem to think about anything else but food. D. Most of my days seem to be pre-occupied with thoughts about food. I feel like I live to eat. Response Group 15: C Group 16 A. I usually know whether or not I'm physically hungry. I take the right portion of food to satisfy me. B. Occasionally, I feel uncertain about knowing whether or not I'm physically hungry. A these times it's hard to know how much food I should take to satisfy me. C. Even though I might know how many calories I should eat, I don't have any idea what is a normal amount of food for me. 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 So far PT appears to be good candidate but will need support pre and post-op New PHQ-9 will be administered for accurate results before finishing assessment. Next flo: 07/19/2024 at 10am Video. Telehealth Telehealth Telehealth Platform: [id number] Location of provider rendering services: other Location of patient: address on file Patient Identification confirmed using: Name, : Yes Telehealth method: video Patient verbally consented to treatment: Yes Patient verbally consented to billing insurance company: Yes Patient informed of any privacy concerns related to visit: Yes Minutes spent on Phone/Video with Pt.: 75 Coding Level of Care Code New Pt Tele Psy Diag Eval ([id number]) Patient Type New Diagnoses Trauma and stressor-related disorder F43.9 Time Spent (min) 75
--- OUTSIDE RECORDS SUMMARY | 2024-07-05 12:42 | XMS_ITS | Clinical Summary ---
Author Organization [facility] ity Address [address] [place] [address] Care Team Providers Care Crew Boat Operator Name Role Phone Unavailable Primary Care Provider Unavailabl e Social History Tobacco Use Types Packs/Day Years Used Date Smoking Tobacco: Never Assessed Comments Unknown Sex and Gender Information Value Date Recorded Sex Assigned at Female 05/03/2022 1:01 PM EST Legal Sex Female 5:01 AM EST Gender Identity Female 05/03/2022 1:01 PM EST Sexual Orientation Straight 05/03/2022 1: 01 PM EST Plan of Treatment Health Maintenance Due Date Last Done Comments DTaP,Tdap,and Td Vaccines (1 - Tdap) 2009 Hepatitis B Vaccines (1 of 3 - 19+ 3-dose series) 2009 Cervical Cancer Screening: P ap Smear 12/03/2011 COVID-19 Vaccine ( - 2023-2 5 season) 2023 Influenza Vaccine (#1) 2023 [...] patient's age to complete this topic Meningococcal B Vacine Aged Out No lo nger eligible based on patient's age to complete this topic Pneumococcal Vaccine: Pediat rics (0 to 5 Years) and At-Risk Patients (6 to 64 Years) Aged Out No longer eligible b ased on patient's age to complete this topic RSV Immunization Patients Un giovana 20 months Aged Out No longer eligible b ased on patient's age to complete this topic Varicella Vaccines Aged Out No longer eligible based on patient's age to complete this topic
== END 2024-07-05 13:03 | disposition home or self-care (01) ==
LOC: HO.HBST 11:09
PROVIDERS: PCP Internal Medicine; Visit Provider Counselor Mental Health
DX: F43.9 Reaction to severe stress, unspecified (principal)

== ENCOUNTER → 2024-07-05 11:09 | Outpatient (BNVA) | payer OTHER, MEDICAID, SELFPAY | PROVIDERS: PCP Internal Medicine; Visit Provider Counselor Mental Health | DX: F43.9 Reaction to severe stress, unspecified (principal) | CPT/HCPCS: 90791 ==

== ENCOUNTER 2024-07-19 10:07 | Outpatient (AMB) | payer OTHER, SELFPAY ==
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
== END 2024-07-19 11:04 | disposition home or self-care (01) ==
LOC: HO.HBST 10:07
PROVIDERS: PCP Internal Medicine; Visit Provider Counselor Mental Health
DX: F43.9 Reaction to severe stress, unspecified (principal)
CPT/HCPCS: 90837

== ENCOUNTER → 2024-07-19 10:07 | Outpatient (BNVA) | payer OTHER, SELFPAY | PROVIDERS: PCP Internal Medicine; Visit Provider Counselor Mental Health ==